=== PATIENT | female | born 1985 | race Caucasian/White ===

== ENCOUNTER 2017-07-28 16:04 | Emergency (ER) | payer BC ==
[2017-07-28 17:37] VITALS: BP 122/66
--- NOTE | 2017-07-28 17:44 | UC ---
Throat Pain/Nasal Shravan HPI - HPI Summary HPI Summary: 32 [address] sore throat, loss of voice and headache for 3 days. works at [employer]. 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 [ End ] - History of Current Complaint Chief Complaint: UCGeneralIllness Stated Complaint: ST Time Seen by Provider: 07/28/17 17:43 Hx Obtained From: Patient Onset/Duration: Gradual Onset Severity: Moderate - Allergies/Home Medications Allergies/Adverse Reactions: Allergies Allergy/AdvReac Type Severity Reaction Status Date / Time Doxycycline Allergy Hives Verified 07/28/17 17:37 Prednisone Allergy HEADACHES/VOMITTING/PROFUSE Verified 07/28/17 17:37 SWEATING Home Medications: Home Medications Albuterol HFA INHALER* [Ventolin HFA Inhaler*] 2 puff INH Q4H PRN 07/28/17 [ History Confirmed 07/28/17] Amitriptyline TAB* [Elavil TAB*] 25 mg PO BEDTIME 07/28/17 [History Confirmed ] Cetirizine* [ZyrTEC 10 MG TAB*] 10 mg PO DAILY 07/28/17 [History Confirmed 07/28] Gabapentin CAP(*) [Neurontin 300 CAP(*)] 300 mg PO BEDTIME 07/28/17 [History Confirmed 07/28/17] Hydroxychloroquine TAB* [Plaquenil TAB*] 200 mg PO DAILY 07/28/17 [History Confirmed 07/28/17] Omeprazole CAP* [Prilosec CAP* 20 MG] 20 mg PO DAILY 07/28/17 [History Confirmed 07/28/17] Sertraline* [Zoloft*] 25 mg PO DAILY 07/28/17 [History Confirmed 07/28/17] PMH/Surg Hx/FS Hx/Imm Hx Previously Healthy: Yes - Surgical History Surgical History: Yes Surgery Procedure, Year, and Place: COLPOSCOPY(SCOPE OF UTERINE/CERVIX); CONE BIOPSY; LEEP; WISDOM TEETH REMOVAL - Family History Known Family History: Negative: Seizure Disorder - Social History Occupation: Employed Full-time Alcohol Use: Rare Substance Use Type: None Smoking Status (MU): Never Smoked Tobacco Review of Systems Constitutional: Chills, Fatigue ENT: Sore Throat, Ear Ache, Nasal Discharge Is Patient Immunocompromised?: No All Other Systems Reviewed And Are Negative: Yes Physical Exam Triage Information Reviewed: Yes Appearance: Well-Appearing, No Pain Distress, Well-Nourished Vital Signs: Initial Vital Signs Temp 98.4 F 07/28/17 17:33 Pulse 78 07/28/17 17:33 Resp 14 07/28/17 17:33 BP 122/66 07/28/17 17:33 Pulse Ox 100 07/28/17 17:33 Vital Signs Reviewed: Yes Eye Exam: Normal ENT Exam: Normal ENT: Positive: Pharyngeal erythema, Nasal congestion Dental Exam: Normal Neck exam: Normal Neck: Positive: 1 Respiratory Exam: Normal Cardiovascular Exam: Normal Musculoskeletal Exam: Normal Neurological Exam: Normal Psychological Exam: Normal Skin Exam: Normal Throat Pain/Nasal Course/Dx - Course Course Of Treatment: neg strep - Differential Dx/Diagnosis Differential Diagnosis/HQI/PQRI: Laryngitis, Otitis Media, Pharyngitis, Tonsillitis, URI Provider Diagnoses: URI Discharge - Discharge Plan Condition: Good Disposition: HOME Patient Education Materials: Upper Respiratory Infection (ED) Forms: *Work Release Referrals: Juan Manuel MD [Primary Care Provider] - 4 Days
== END 2017-07-28 18:40 | disposition home or self-care (01) ==
LOC: UCCORT 16:04
DX: J06.9 Acute upper respiratory infection, unspecified (principal); Z88.1 Allergy status to other antibiotic agents; Z88.8 Allergy status to other drugs, medicaments and biological substances
CPT/HCPCS: 87651; 99211; G0463

== ENCOUNTER 2017-11-03 14:55 | Emergency (ER) | payer BC ==
[2017-11-03 17:15] VITALS: BP 116/66
--- NOTE | 2017-11-03 17:37 | UC ---
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 Did have a brief typical scotomo today. No photophobia, diplopia. Has nausea but no vomiting. No fever, no recent illness, no trauma. No ear symptoms, no tinnitus. Does have seasonal allergies which activate at this time of year. Takes daily cetirazine. - History Of Current Complaint Chief Complaint: UCDizziness Stated Complaint: DIZZINESS Time Seen by Provider: 11/03/17 17:35 Hx Obtained From: Patient Hx Last Menstrual Period: 10/31/27 Onset/Duration: Gradual Onset, Lasting Days - 7 Timing: Intermittent Episode Lasting - hours, all day today, other days had an hour here and there. Severity Initially: Moderate Severity Currently: Moderate Pain Intensity: 5 Character: Room Spinning, Lightheaded Aggravating Factor(s): Headache, Position Change Alleviating Factor(s): Rest Associated Signs And Symptoms: Positive: Nausea. Negative: Change In Medication - on elavil, gabapentin and sertraline, but no recent dose changes. Normal labs last month. - Risk Factors Cardiac Risk Factors: Negative CVA Risk Factor: Negative - Allergies/Home Medications Allergies/Adverse Reactions: Allergies Allergy/AdvReac Type Severity Reaction Status Date / Time doxycycline Allergy Rash Verified 11/03/17 17:11 prednisone Allergy Vomiting Verified 11/03/17 17:11 PMH/Surg Hx/FS Hx/Imm Hx Previously Healthy: No - lupus and ITP - Surgical History Surgical History: Yes Surgery Procedure, Year, and Place: COLPOSCOPY(SCOPE OF UTERINE/CERVIX); CONE BIOPSY; LEEP; WISDOM TEETH REMOVAL - Family History Known Family History: Positive: Other Negative: Seizure Disorder - Social History Occupation: Employed Full-time Lives: Alone Alcohol Use: Occasionally Substance Use Type: None Smoking Status (MU): Never Smoked Tobacco Review of Systems Constitutional: Fatigue Skin: Negative Eyes: Other - some scintillating lights today, typical scotoma for ehr ENT: Negative Respiratory: Negative Cardiovascular: Negative Gastrointestinal: Negative Genitourinary: Negative Motor: Negative Neurovascular: Negative Musculoskeletal: Negative Neurological: Headache Psychological: Negative Is Patient Immunocompromised?: No All Other Systems Reviewed And Are Negative: Yes Physical Exam Triage Information Reviewed: Yes Appearance: Well-Appearing, Obese, Other: - mildly off balance with position changes, but corrects easily Vital Signs: Initial Vital Signs Temp 99.4 F 11/03/17 17:12 Pulse 72 11/03/17 17:12 Resp 18 11/03/17 17:12 BP 116/66 11/03/17 17:12 Pulse Ox 100 11/03/17 17:12 Eyes: Positive: Conjunctiva Clear, Other: - MONI, EOM normal, no nystagmus with position change sitting to lying ENT: Positive: Pharynx normal, TM red - on the left Dental Exam: Normal Neck: Positive: Supple, Nontender, No Lymphadenopathy Respiratory: Positive: Lungs clear, Normal breath sounds Cardiovascular: Positive: RRR Abdomen Description: Positive: Nontender, No Organomegaly, Soft Neurological Exam: Other - CNII-XII normal. No pronator drift. Negative Romberg. Can heel to toe walk--slow but accurate. Neurological: Positive: Alert, Muscle Tone Normal Skin Exam: Normal Dizzy Course/Dx - Course Course Of Treatment: zofran for nausea. Labs drawn for evaluation and follow up with her PMD. Declined CT imaging tonight. - Differential Dx/Diagnosis Differential Diagnosis/HQI/PQRI: CVA, Meniere's Disease, Medication Reaction Provider Diagnoses: dizziness NYD. Has some symptoms consistent with BPPV, but inconsistent exam. Discharge - Sign-Out/Discharge Documenting (check all that apply): Discharge - Discharge Plan Condition: Stable Disposition: HOME Patient Education Materials: Dizziness (ED) Forms: *Work Release Referrals: Juan Manuel MD [Primary Care Provider] - Additional Instructions: The cause of your symptoms is not clear. It is possible that it is mild positional vertigo, and it could be compounded by an ocular migraine. Labs have been drawn to check your platelet count, creactive protein, and chemistries. Follow up with your team leader surgery or Dr. Manuel early next week. Return to the emergency room for evaluation if your symptoms are worsening. Take zofran and acetaminophen before bed tonight, with the anticipation that the symptoms might sebas with treatment of your headache. - Billing Disposition and Condition Condition: STABLE Disposition: HOME
[2017-11-03] MEDS ORDERED: Ondansetron ODT TAB* 4 MG PO ONE (18:04)
[2017-11-03 20:25] LABS: EGFR Non-African American 83.3 (>60)
[2017-11-03 20:29] LABS: ABS Basophils 0 10^3/ul (0-0.2); ABS Eosinophils 0.2 10^3/ul (0-0.6); ABS Lymphocytes 1.7 10^3/ul (1.0-4.8); ABS Monocytes 0.4 10^3/ul (0-0.8); ABS Neutrophils 3.6 10^3/ul (1.5-7.7); ABS Nucleated RBC 0 10^3/ul; Eosinophil % 3.1 % (0-6); Hematocrit 43 % (35-47); Hemoglobin 14.8 g/dl (12.0-16.0); Lymphocyte % 28.8 % (25-47); Mean Corpuscular HGB Conc 34 g/dl (31-36); Mean Corpuscular Hemoglobin 30 pg (27-31); Mean Corpuscular Volume 89 fL (80-97); Mean Platelet Volume 13.2 um3 (7.4-10.4); Nucleated Red Blood Cells % 0.1; Platelet Count 61 10^3/ul (150-450); Red Blood Count 4.85 10^6/ul (4.0-5.4); Red Cell Distribution Width 13 % (10.5-15)
--- NOTE | 2017-11-04 08:11 | UC ---
- Progress Note Progress Note: Pt with decreased platelet levels on lab. Pt with h/o ITP and lupus No previous for comparison in [facility] Please call pt - report platelet -recommend pt call and discuss with PCP or ginger farmer Pt to go to ED if sx persist, CARDOSO, confusion, or any other concerns bonniebunny 11/04/17 Discharge - Sign-Out/Discharge Documenting (check all that apply): Discharge - Discharge Plan Condition: Stable Disposition: HOME Patient Education Materials: Dizziness (ED) Forms: *Work Release Referrals: Juan Manuel MD [Primary Care Provider] - Additional Instructions: The cause of your symptoms is not clear. It is possible that it is mild positional vertigo, and it could be compounded by an ocular migraine. Labs have been drawn to check your platelet count, creactive protein, and chemistries. Follow up with your ginger farmer or Dr. Manuel early next week. Return to the emergency room for evaluation if your symptoms are worsening. Take zofran and acetaminophen before bed tonight, with the anticipation that the symptoms might sebas with treatment of your headache. - Billing Disposition and Condition Condition: STABLE Disposition: HOME
--- NOTE | 2017-11-05 07:37 | UC ---
- Progress Note Progress Note: Low platelet count. Watch for bleeding. Needs to follow up with PCP for recheck and possible referral to [facility]. Discharge - Sign-Out/Discharge Documenting (check all that apply): Discharge - Discharge Plan Condition: Stable Disposition: HOME Patient Education Materials: Dizziness (ED) Forms: *Work Release Referrals: Juan Manuel MD [Primary Care Provider] - Additional Instructions: The cause of your symptoms is not clear. It is possible that it is mild positional vertigo, and it could be compounded by an ocular migraine. Labs have been drawn to check your platelet count, creactive protein, and chemistries. Follow up with your rn admit or Dr. Manuel early next week. Return to the emergency room for evaluation if your symptoms are worsening. Take zofran and acetaminophen before bed tonight, with the anticipation that the symptoms might sebas with treatment of your headache. - Billing Disposition and Condition Condition: STABLE Disposition: HOME
== END 2017-11-03 18:38 | disposition home or self-care (01) ==
LOC: UCCORT 14:55
DX: R42 Dizziness and giddiness (principal); D69.6 Thrombocytopenia, unspecified; M32.9 Systemic lupus erythematosus, unspecified; Z88.8 Allergy status to other drugs, medicaments and biological substances; Z88.3 Allergy status to other anti-infective agents
CPT/HCPCS: 36415; 80053; 84443; 85025; 85060; 86141; 99212; A9270-GY; G0463

== ENCOUNTER 2018-02-25 17:21 | Emergency (ER) | payer BC ==
--- OUTSIDE RECORDS SUMMARY | 2018-02-25 17:52 | XMS REPORT ---
:1985 Author Organization [facility] Address [address] [place] [address] Care Team Providers Name Role Phone Katja Hargrove Unavailable Unavailable PROBLEMS Type Condition ICD9-CM Code [id number] Code Onset Condition SNOMED Code Dates Status Problem Mastodynia N64.4 Active 55568816 Problem Anal spasm K59.4 Active 65284280 Problem Pelvic and R10.2 Active 819550551 perineal pain Problem Leiomyoma of D25.9 Active 35684095 uterus, unspecified Problem Irregular N92.6 Active 46173909 menstruation, unspecified ALLERGIES No Information ENCOUNTERS Encounter Location Date Diagnosis [facility] [address] Feb, [place], [place] [id number] [facility] [address] Feb, [place], [place] [id number] [facility] [address] Jan, [place]BG[place] [id number] [facility] [address] Jan, Pelvic and perineal pain OBGYN [facility], R10.2 ; Mastodynia N64.4 [place] [id number] and Anal spasm K59.4 [facility] [address] Oct, OBGYN [place], [place] [id number] [facility] [address] Oct, [place]BG[place], [place] [id number] [facility] 103 Oct, Hematuria, unspecified OBGYN [facility], R31.9 [place] [id number] [facility] [address] Oct, [place]BG[place], [place] [id number] [facility] [address] Oct, [place] [id number] [facility] [address] Oct, Encounter for routine OBGYN [facility], checking of intrauterine [place] [id number] contraceptive device Z30.431 and Frequency of micturition R35.0 [facility] [address] Aug, Encounter for routine OBGYN [facility], checking of intrauterine [place] [id number] contraceptive device Z30.431 [facility] 103 Jul, Pelvic and perineal pain OBGYN [facility], R10.2 ; Anal spasm K59.4 ; [place] [id number] Leiomyoma of uterus, unspecified D25.9 and Encounter for other general counseling and advice on contraception Z30.09 [facility] 103 Jul, Leiomyoma of uterus, OBGYN [facility], unspecified D25.9 and [place] [id number] Encounter for routine checking of intrauterine contraceptive device Z30.431 [facility] 103 May, [place], [place] [id number] [facility] 103 May, Pelvic and perineal pain OBGYN [facility], R10.2 ; Anal spasm K59.4 ; [place] [id number] Leiomyoma of uterus, unspecified D25.9 and Encounter for other general counseling and advice on contraception Z30.09 [facility] 103 May, Leiomyoma of uterus, OBGYN [facility], unspecified D25.9 ; Pelvic [place] [id number] and perineal pain R10.2 and Encounter for routine checking of intrauterine contraceptive device Z30.431 [facility] 103 Apr, OBGYN [place], [place] [id number] [facility] [address] Apr, [place]BGYN [place], [place] [id number] [facility] 103 Apr, Hematuria, unspecified OBGYN [facility], R31.9 ; Other specified [place] [id number] noninflammatory disorders of vagina N89.8 ; Pelvic and perineal pain R10.2 and Anal spasm K59.4 [facility] Feb, [place]BGYN [place] [id number] [facility] [address] Feb, [place]BG[place] [id number] [facility] Feb, Other specified OBGYN [facility], noninflammatory disorders [place] [id number] of vagina N89.8 ; Frequency of micturition R35.0 and Anal spasm K59.4 [facility] Feb, Pelvic and perineal pain OBGYN [facility], R10.2 ; Irregular [place] [id number] menstruation, unspecified N92.6 and Encounter for routine checking of intrauterine contraceptive device Z30.431 [facility] [address] Feb, Encounter for [facility], gynecological examination [place] [id number] (general) (routine) without abnormal findings Z01.419 ; Encounter for screening for malignant neoplasm of cervix Z12.4 ; Encounter for other contraceptive management Z30.8 and PELVIC PAIN 625.9 [facility] Feb, Pelvic and perineal pain OBGYN [facility], R10.2 [place] [id number] [facility] 103 Feb, Pelvic and perineal pain OBGYN [facility], R10.2 [place] [id number] [facility] [address] Feb, [place] [id number] [facility] Jan, [place] [id number] [facility] 103 Jan, [facility] gynecological examination [place] [id number] (general) (routine) without abnormal findings Z01.419 and Frequency of micturition R35.0 [facility] 103 Dec, Irregular menstruation, OBGYN [facility], unspecified N92.6 and [place] [id number] Pelvic and perineal pain R10.2 [facility] 103 Dec, Other specified [facility], menstruation N92.5 and [place] [id number] Encounter for routine checking of intrauterine contraceptive device Z30.431 [facility] 103 November, [facility]ation, [facility], unspecified N92.6 [place] [id number] [facility] 103 Jan, ROUTINE GAS APPLIANCE ADJUSTER EXAMINATION [facility], V72.31 and STD Screen [place] [id number] V74.5 [facility] 103 November, Ovarian cyst NOS 620.2 [place] [id number] [facility] 103 November, PELVIC PAIN 625.9 and [facility]UD [facility], SURVEILLANCE V25.42 [place] [id number] [facility] Oct, [place] [id number] [facility] 103 Sep, [place] [id number] [facility] [address] Sep, [place] [id number] [facility] 103 Sep, Ovarian cyst NOS 620.2 and OBGYN [facility], PELVIC PAIN 625.9 [place] [id number] [facility] 103 Sep, Irregular bleeding NOS OBGYN [facility], 626.4 ; PELVIC PAIN 625.9 [place] [id number] ; IUD SURVEILLANCE V25.42 and Ovarian cyst NOS 620.2 [facility] 103 Sep, [place], [place] [id number] [facility] 103 Jan, VAGINAL DISCHARGE 623.5 [place]BGYN [place], [place] [id number] [facility] 103 Jan, [place]BG[place], [place] [id number] [facility] 103 Jan, ROUTINE GAS APPLIANCE ADJUSTER EXAMINATION OBGYN [facility], V72.31 [place] [id number] IMMUNIZATIONS No Known Immunizations SOCIAL HISTORY Never Assessed REASON FOR REFERRAL FUNCTIONAL STATUS PLAN OF CARE VITAL SIGNS MEDICATIONS Unknown Medications PROCEDURES No Known procedures RESULTS No Results REASON FOR VISIT Hematuria- vm sent 01/27/18 MEDICAL (GENERAL) HISTORY Type Description Date Medical History lupus Medical History neuropathy Medical History thrombocytopenia Medical History Raynaud's Syndrome Medical History asthma Surgical History colpo (CINII) 2006 Surgical History cone bx 2006 Surgical History leep 2006
[2018-02-25 18:01] VITALS: BP 116/67
--- NOTE | 2018-02-25 18:27 | UC ---
Respiratory Complaint HPI - HPI Summary HPI Summary: Patient is year 33-year-old female old , with past medical history significant for asthma for which she takes inhaler only as needed, and lupus, ITP(Last platelet count of 70, 2 months ago) and neuropathy who presents today with 2 days of nasal congestion and sore throat which has now progressed and her ear feels plugged and some tightness in the chest. She has not taken her inhaler. Reports mild fever at home,was 99.2F nights 2 days ago but no more fever since. Also has mild nonproductive cough. Now has noted tender lymph nodes. She denies any sick contact. No skin rash. No diaphoresis. Denies any abdominal pain , nausea or vomiting , diarrhea or constipation. She has not tried over the counter medication . - History of Current Complaint Chief Complaint: UCRespiratory Stated Complaint: HEAD AND CHEST CONGESTION Time Seen by Provider: 02/25/18 18:23 Hx Obtained From: Patient Hx Last Menstrual Period: 02/02/18 ?: No Onset/Duration: Sudden Onset Pain Intensity: 3 - Allergies/Home Medications Allergies/Adverse Reactions: Allergies Allergy/AdvReac Type Severity Reaction Status Date / Time doxycycline Allergy Rash Verified 11/03/17 17:11 prednisone Allergy Vomiting Verified 11/03/17 17:11 PMH/Surg Hx/FS Hx/Imm Hx - Additional Past Medical History Additional PMH: Lupus Previously Healthy: Yes Other Endocrine History: negative Cardiovascular History: Other - ITP Other Cardiovascular History: negative Respiratory History: Asthma Other Respiratory History: negative Other GI/ History: negative Neurological History: Other - neuropathy Other Neurological History: negative Other Psychological History: negative Other Cancer History: negative - Surgical History Surgical History: Yes Surgery Procedure, Year, and Place: COLPOSCOPY(SCOPE OF UTERINE/CERVIX); CONE BIOPSY; LEEP; WISDOM TEETH REMOVAL - Family History Known Family History: Positive: Other Negative: Seizure Disorder - Social History Alcohol Use: Occasionally Substance Use Type: None Smoking Status (MU): Never Smoked Tobacco Review of Systems Constitutional: Negative Skin: Negative Eyes: Negative ENT: Sore Throat, Ear Ache, Nasal Discharge, Sinus Congestion Respiratory: Negative Cardiovascular: Other - chest congestion Gastrointestinal: Negative Genitourinary: Negative Motor: Negative Neurovascular: Negative Musculoskeletal: Negative Neurological: Negative Psychological: Negative Is Patient Immunocompromised?: No All Other Systems Reviewed And Are Negative: Yes Physical Exam - Summary Physical Exam Summary: Physical Exam: Const: Appears well. No signs of apparent distress present. Alert and oriented x 3. Musculo: Walks with a normal gait. Head/Face: Atraumatic, normocephalic on inspection. Eyes: EOMI and PERRLA in both eyes. Conjunctivae clear. No discharge noted ENT: Hearing normal, mild pharyngeal erythema. TM mild red bilaterally. Tender anterior cervical lymphadenopathy on right Respiratory: Respirations are unlabored. Lungs clear to auscultation bilaterally, no wheezing , rhonchi or rales noted . CVS: Regular rate and Rhythm, S1S2 normal , no murmurs identified. Extremities: Peripheral circulation is grossly normal. Pulses 2+ Abdomen : Soft non tender , nondistended , Bowel sounds present . No guarding , rebound tenderness or rigidity noted. Skin: No lesions or rash located on the upper extremities or on the lower extremities. Neuro: Cranial nerves II to XII intact, motor and sensory intact. DTR Intact bilaterally. Mood is normal. Affect is normal. Triage Information Reviewed: Yes Vital Signs: Initial Vital Signs Temp 98.6 F 02/25/18 17:54 Pulse 80 02/25/18 17:54 Resp 14 02/25/18 17:54 BP 116/67 02/25/18 17:54 Pulse Ox 98 02/25/18 17:54 Vital Signs Reviewed: Yes UC Diagnostic Evaluation - Laboratory O2 Sat by Pulse Oximetry: 98 Respiratory Course/Dx - Course Course Of Treatment: During the visit today, we obtained rapid strep test that was negative. We discussed the findings and further plan. I will prescribe the medication to the pharmacy . Patient expressed understanding . - Differential Dx/Diagnosis Provider Diagnoses: Pharyngitis. Bronchitis. Atypical Pneumonia Discharge - Sign-Out/Discharge Documenting (check all that apply): Patient Departure - Discharge Plan Condition: Stable Disposition: HOME Prescriptions: Azithromyxin PB (NF) [Z-Pb (Zithromax) 250 mg tabs #6] 2 tab PO .TODAY, THEN 1 DAILY #6 tab Patient Education Materials: Pharyngitis (ED), Acute Bronchitis (ED) Referrals: Juan Manuel MD [Primary Care Provider] - 5 Days Additional Instructions: Please start taking the medication as prescribed to the pharmacy . Follow up with your primary care doctor in 3 to 5 days. Return to Urgent care / ER if symptoms get worse. - Billing Disposition and Condition Condition: STABLE Disposition: Home
== END 2018-02-25 19:10 | disposition home or self-care (01) ==
LOC: UCCORT 17:21
DX: J02.9 Acute pharyngitis, unspecified (principal); J40 Bronchitis, not specified as acute or chronic; J18.9 Pneumonia, unspecified organism; Z88.8 Allergy status to other drugs, medicaments and biological substances; Z88.1 Allergy status to other antibiotic agents
CPT/HCPCS: 87651; 99211; G0463

== ENCOUNTER 2018-02-26 12:32 | Emergency (ER) | payer BC ==
[2018-02-26 13:58] VITALS: BP 124/71
--- NOTE | 2018-02-26 14:50 | UC ---
Back Pain HPI - HPI Summary HPI Summary: 33 year old female presents with right, middle back pain that started suddenly yesterday after bending over. Describes as contant, ache that becomes more sharp and intense with any movement, twisting, or ambulation. Denies fever, chills, weakness, numbness, tingling in extremities, loss of bowel or bladder control, dysuria, frequency, urgency, or hematuria. She was seen in this facility yesterday and treated for URI. - History of Current Complaint Chief Complaint: UCBackPain Stated Complaint: BACK PAIN Time Seen by Provider: 02/26/18 14:35 Hx Obtained From: Patient Hx Last Menstrual Period: 01/29/18 ?: No Onset/Duration: Sudden Onset Timing: Constant Severity Initially: Moderate Severity Currently: Moderate Pain Intensity: 6 Back Pain: Is Discrete @ - right middle back Character: Sharp, Aching Aggravating Factor(s): Movement, Bending, Walking Alleviating Factor(s): Nothing Associated Signs And Symptoms: Negative: Fever, Weakness, Numbness, Tingling, Abdominal Pain, Flank Pain, Bladder Incontinence, Bowel Incontinence - Allergies/Home Medications Allergies/Adverse Reactions: Allergies Allergy/AdvReac Type Severity Reaction Status Date / Time doxycycline Allergy Rash Verified 02/26/18 13:50 prednisone Allergy Vomiting Verified 02/26/18 13:50 Home Medications: Home Medications Azithromyxin PB (NF) [Z-Pb (Zithromax) 250 mg tabs #6] 2 tab PO .TODAY, THEN 1 DAILY 02/26/18 [History Confirmed 02/26/18] PMH/Surg Hx/FS Hx/Imm Hx - Additional Past Medical History Additional PMH: ITP Psychological History: Depression - Surgical History Surgical History: Yes Surgery Procedure, Year, and Place: COLPOSCOPY(SCOPE OF UTERINE/CERVIX); CONE BIOPSY; LEEP; WISDOM TEETH REMOVAL - Family History Known Family History: Positive: Other - noncontributory Negative: Seizure Disorder - Social History Occupation: Employed Full-time Lives: With Family Alcohol Use: Rare Substance Use Type: None Smoking Status (MU): Never Smoked Tobacco Review of Systems Constitutional: Negative Skin: Negative Respiratory: Negative Cardiovascular: Negative Gastrointestinal: Negative Genitourinary: Negative Motor: Negative Neurovascular: Negative Musculoskeletal: Other: - back pain Neurological: Negative Is Patient Immunocompromised?: No All Other Systems Reviewed And Are Negative: Yes Physical Exam Triage Information Reviewed: Yes Appearance: Well-Appearing, No Pain Distress, Well-Nourished Vital Signs: Initial Vital Signs Temp 98.5 F 02/26/18 13:52 Pulse 75 02/26/18 13:52 Resp 14 02/26/18 13:52 BP 124/71 02/26/18 13:52 Pulse Ox 98 02/26/18 13:52 Neck: Positive: Supple, Nontender Respiratory: Positive: Lungs clear, Normal breath sounds, No respiratory distress Cardiovascular: Positive: RRR, No Murmur Abdomen Description: Positive: Nontender, Soft Musculoskeletal: Positive: Strength Intact, Other: - Tenderness with muscle spasm right thoracic back. No point tenderness over spine. Neurological: Positive: Muscle Tone Normal Skin Exam: Normal Back Pain Course/Dx - Course Course Of Treatment: Sudden onset right thoracic back pain after bending over. Muscle tenderness and spasm right thoracic back on exam. Patient unable to take NSAIDs d/t ITP. Will treat with acetaminophen and cyclobenzaprine PRN. Heating pad. Follow up with PCP in 7 days if no improvement. - Differential Dx/Diagnosis Provider Diagnoses: acute mid right sided back pain Discharge - Sign-Out/Discharge Documenting (check all that apply): Patient Departure - Discharge Plan Condition: Stable Disposition: HOME Prescriptions: Cyclobenzaprine TAB* [Flexeril 10 MG TAB*] 10 mg PO TID PRN #30 tab PRN Reason: Pain - Back Patient Education Materials: Back Pain (ED) Referrals: Juan Manuel MD [Primary Care Provider] - 7 Days (if no improvement) Additional Instructions: Take acetaminophen (Tylenol) according to directions as needed for pain. Take cyclobenzaprine (Flexeril) 1 tab every 8 hours as needed for severe back pain or spasm. This will cause drowsiness so do not take and drive or operate machinery. Try to stay as active as your pain will allow. Back pain can actually worsen if all you do is lie down as this can lead to muscle weakness and worsening of injury. Avoid heavy lifting or strenuous activity. Use heating pad or warm showers several times a day to help relax muscles and relieve pain. Follow up with your primary care provider in 7 days if no improvement. Per institutional requirements, I have reviewed the chart, however, I was not consulted specifically or made aware of this patient by the above midlevel provider. I did not personally evaluate, interact with , or disposition this patient. - Billing Disposition and Condition Condition: STABLE Disposition: Home
== END 2018-02-26 15:01 | disposition home or self-care (01) ==
LOC: UCCORT 12:32
DX: M54.6 Pain in thoracic spine (principal); Z88.1 Allergy status to other antibiotic agents; Z88.8 Allergy status to other drugs, medicaments and biological substances
CPT/HCPCS: 99212; G0463

== ENCOUNTER 2018-04-23 19:08 | Emergency (ER) | payer BC ==
--- OUTSIDE RECORDS SUMMARY | 2018-04-23 19:23 | XMS REPORT ---
:1985 External Reference #:[id number] Author Organization [facility] Address [address], [address] [place] [address] Phone [phone] Care Team Providers Name Role Phone Juan Manuel MD Care Team Information Cleaning Validation Consultant Unavailable Juan Manuel MD Primary Care Physician Unavailable Payers Type Date Identification Numbers Payment Provider Subscriber Commercial Policy Number: [id number] Rose Jefferson PayID: [id number] [address] [address] [place] [address] Problems Date Description Provider Status Onset: 10/03/2017 Hematuria syndrome Vickey Medeiros M.D. Active Onset: 10/03/2017 Increased frequency of urination Vickey Medeiros M.D. Active Family History Date Family Member(s) Problem(s) Comments Father enlarged prostate Mother Asthma Mother Anxiety Social History Type Date Description Comments Lives With Alone Occupation perioperative assistant for special needs. ETOH Use Currently consumes alcohol socially Recreational Drug Use Never Used Drugs Smoking Patient denies history of smoking Daily Caffeine Current Caffeine User occasionally Allergies, Adverse Reactions, Alerts Date Description Reaction Status Severity Comments 10/03/2017 Prednisone sweating and vomitting active Severe 10/03/2017 Doxycycline hives active Mild to Moderate 10/03/2017 Pepto-Bismol Nausea and Vomiting active Moderate to Severe Medications Medication Date Status Form Strength Qnty SIG Indications Ordering Provider Sertraline HCL Active Tablets 50mg 1 q day in Digiovann /0000 am Juan haas MD Hydroxychloroquin Active Tablets 200mg 2 xs q day Unknown e Sulfate / Omeprazole Active Capsules DR 20mg prn Digiovann /0000 Juan haas MD Gabapentin Active Capsules 300mg 2 at hs Unknown / Cetirizine HCL Active Tablets 10mg Take One Unknown Tablet By Mouth Every Day Mometasone Active Suspension 50mcg/Act prn Fensterma Furoate / Ronald estrada, RPA-C Multivitamin Active Tablets 1 by mouth Unknown every day Ventolin HFA Active Aerosol 108(90Bas take 2 e) puffs mcg/Act every 6 hours as needed for shortness of breath. Mirena (52 MG) Active IUD 20mcg/24H inserted Unknown R 07/22/2017, removal by 07/22/2022 lot [email or web address] Vitamin B-2 Active Tablets 100mg 2 by mouth Unknown every day Vesicare 01/16 Hx Tablets 5mg 7tabs 1 by mouth Waldemar, every day Sindy Hurd M.D. 02/17 Myrbetriq 10/03 Hx Tablets ER 50mg 30tab 1 by mouth R35.0 Waldemar, 24HR s every day Sindy Hurd M.D. 02/17 Vital Signs Date Vital Result Comment 03/27/2018 BP Systolic 112 mmHg BP Diastolic 73 mmHg Body Temperature 98.2 F Heart Rate 76 /min Respiratory Rate 16 /min Height 63 inches 5'3" Weight 192.12 lb BMI (Body Mass Index) 34.0 kg/m2 BSA (Body Surface Area) 1.90 m2 Reserve body weight in kilograms 52 O2 % BldC Oximetry 98 % Pain Level 0 03/08/2018 BP Systolic 116 mmHg BP Diastolic 70 mmHg Body Temperature 98.4 F Heart Rate 76 /min Respiratory Rate 16 /min O2 % BldC Oximetry 100 % Pain Level 0 03/01/2018 BP Systolic 110 mmHg BP Diastolic 73 mmHg Body Temperature 98.6 F Heart Rate 96 /min Respiratory Rate 16 /min Height 63 inches 5'3" Reserve body weight in kilograms 52 O2 % BldC Oximetry 98 % Pain Level 0 02/22/2018 BP Systolic 101 mmHg BP Diastolic 68 mmHg Body Temperature 98.3 F Heart Rate 87 /min Respiratory Rate 15 /min Height 63 inches 5'3" Reserve body weight in kilograms 52 O2 % BldC Oximetry 97 % Pain Level 4 Headache 02/17/2018 BP Systolic 113 mmHg BP Diastolic 69 mmHg Body Temperature 98.5 F Heart Rate 74 /min Respiratory Rate 15 /min Height 63 inches 5'3" Weight 184.25 lb BMI (Body Mass Index) 32.6 kg/m2 BSA (Body Surface Area) 1.87 m2 Reserve body weight in kilograms 52 O2 % BldC Oximetry 98 % Pain Level 0 02/08/2018 BP Systolic 110 mmHg BP Diastolic 76 mmHg Body Temperature 97.9 F Heart Rate 78 /min Respiratory Rate 16 /min O2 % BldC Oximetry 98 % Pain Level 0 02/03/2018 BP Systolic 126 mmHg BP Diastolic 68 mmHg Body Temperature 98.1 F Heart Rate 64 /min Respiratory Rate 16 /min O2 % BldC Oximetry 98 % Pain Level 0 01/16/2018 BP Systolic 120 mmHg BP Diastolic 79 mmHg Body Temperature 98.3 F Heart Rate 81 /min Respiratory Rate 16 /min Height 63 inches 5'3" Reserve body weight in kilograms 52 O2 % BldC Oximetry 96 % Pain Level 0 10/31/2017 BP Systolic 116 mmHg BP Diastolic 75 mmHg Body Temperature 98.5 F Heart Rate 89 /min Respiratory Rate 18 /min Height 63 inches 5'3" Weight 184.00 lb BMI (Body Mass Index) 32.6 kg/m2 BSA (Body Surface Area) 1.87 m2 Reserve body weight in kilograms 52 O2 % BldC Oximetry 93 % Pain Level 3 uncomfortable, low back pain 10/03/2017 BP Systolic 117 mmHg BP Diastolic 72 mmHg Body Temperature 98.1 F Heart Rate 83 /min Respiratory Rate 16 /min Height 63 inches 5'3" Weight 182.00 lb BMI (Body Mass Index) 32.2 kg/m2 BSA (Body Surface Area) 1.86 m2 Reserve body weight in kilograms 52 O2 % BldC Oximetry 97 % Pain Level 3 dull pain in lower back. Results Test Date Test Result H/L Range Note Ua RFX Micro & Culture II 01/16/2018 Urine Color YELLOW Yellow 1 Urine Clarity CLEAR Clear 1 Urine Glucose - Dipstick NEGATIVE mg/dL Negative 1 Urine Bilirubin - Dipstick NEGATIVE Negative 1 Urine Ketone NEGATIVE mg/dL Negative 1 Urine Specific [place] <=1.005 Low 1.010-1.030 1 Urine Blood SMALL Negative 1 Urine PH 5.5 Low 6.5-7.5 1 Urine Protein - Dipstick NEGATIVE mg/dL Negative 1 Urine Urobilinogen - Dipstick 0.2 E.U./dL 0.2-1.0 1 Urine Nitrite - Dipstick NEGATIVE Negative 1 Urine Leuk Esterase NEGATIVE Negative 1 Urine RBC 0-2 rbc/hpf 0-2 1 Urine WBC NONE SEEN wbc/hpf 0-7 1 Urine Epithelial Cells NONE SEEN /lpf None Seen 1 Source: URINE, CLEAN CAT <SEE NOTE> 1, 2 Ua RFX Micro & Culture II 10/03/2017 Urine Color YELLOW Yellow 1 Urine Clarity CLEAR Clear 1 Urine Glucose - Dipstick NEGATIVE mg/dL Negative 1 Urine Bilirubin - Dipstick NEGATIVE Negative 1 Urine Ketone NEGATIVE mg/dL Negative 1 Urine Specific [place] 1.010 1.010-1.030 1 Urine Blood SMALL Negative 1 Urine PH 5.5 Low 6.5-7.5 1 Urine Protein - Dipstick NEGATIVE mg/dL Negative 1 Urine Urobilinogen - Dipstick 0.2 E.U./dL 0.2-1.0 1 Urine Nitrite - Dipstick NEGATIVE Negative 1 Urine Leuk Esterase NEGATIVE Negative 1 Urine RBC 0-2 rbc/hpf 0-2 1 Urine WBC NONE SEEN wbc/hpf 0-7 1 Urine Epithelial Cells VERY FEW /lpf None Seen 1 Urine Bacteria NONE SEEN None Seen 1 Source: URINE, CLEAN CAT <SEE NOTE> 1, 3 1 R31.9 2 URINE, CLEAN CATCH 3 URINE, CLEAN CATCH Procedures Date CPT Code Description Status 03/08/2018 79493 Posterior Tibial Neurostimulation, Percutaneous Needle Completed Electrode 03/01/2018 59605 Posterior Tibial Neurostimulation, Percutaneous Needle Completed Electrode 02/22/2018 42098 Posterior Tibial Neurostimulation, Percutaneous Needle Completed Electrode 02/17/2018 94955 Posterior Tibial Neurostimulation, Percutaneous Needle Completed Electrode 02/08/2018 17545 Posterior Tibial Neurostimulation, Percutaneous Needle Completed Electrode 02/03/2018 37889 Posterior Tibial Neurostimulation, Percutaneous Needle Completed Electrode 01/16/2018 48722 Measurement Post Voiding Residual Urine By Completed Ultrasound,Non-Imaging 10/03/2017 64775 Measurement Post Voiding Residual Urine By Completed Ultrasound,Non-Imaging Encounters Type Date Location Provider CPT E/M Dx Office Visit 03/27/2018 3:45p Urology Vickey Medeiros M.D. 13696 R35.0 Office Visit 01/16/2018 1:30p Urology Vickey Medeiros M.D. 65776 R35.0 Office Visit 10/31/2017 3:45p Urology Vickey Medeiros M.D. 92731 R35.0 Office Visit 10/03/2017 2:15p Urology Vickey Medeiros M.D. 23595 R35.0 R31.9 Plan of Care Future Appointment(s):09/26/2018 3:30 pm - Vickey Medeiros M.D. at [id number] - Vickey Medeiros M.D.R35.0 Frequency of micturitionComments:We are discontinuing the PTNS. Discussed the modifications with the patient like limiting her fluids before bedtime, timed voiding during the daytime. Patient will follow-up with me in a few months to reevaluate.
[2018-04-23] MEDS ORDERED: Tetan/Diph/Pertus SYR(Tdap)* 0.5 ML SYR(BOOSTRIX) use SYR IM ONE (19:44)
[2018-04-23 19:49] VITALS: BP 121/58
--- NOTE | 2018-04-23 20:25 | UC ---
Lower Extremity/Ankle HPI - HPI Summary HPI Summary: patient stepped on a nail with bleeding, and pain , pain with associated swelling - History of Current Complaint Chief Complaint: UCGeneralIllness Stated Complaint: LEFT FOOT INJURY Time Seen by Provider: 04/23/18 19:28 Hx Last Menstrual Period: has mirena ?: No Onset/Duration: Sudden Onset Severity Initially: Moderate Severity Currently: Moderate Pain Intensity: 2 Aggravating Factor(s): Standing Able to Bear Weight: Yes - Risk Factors Gout Risk Factors: Negative DVT Risk Factors: Negative Septic Arthritis Risk Factor: Negative - Allergies/Home Medications Allergies/Adverse Reactions: Allergies Allergy/AdvReac Type Severity Reaction Status Date / Time doxycycline Allergy Rash Verified 04/23/18 19:49 prednisone Allergy Vomiting Verified 04/23/18 19:49 Home Medications: Home Medications Multivitamins/Minerals TAB* [Theragran/minerals TAB*] 1 tab PO DAILY 04/23/18 [ History Confirmed 04/23/18] Vitamin B2 1 tab BEDTIME 04/23/18 [History Confirmed 04/23/18] PMH/Surg Hx/FS Hx/Imm Hx Previously Healthy: Yes - Surgical History Surgical History: Yes Surgery Procedure, Year, and Place: COLPOSCOPY(SCOPE OF UTERINE/CERVIX); CONE BIOPSY; LEEP; WISDOM TEETH REMOVAL - Family History Known Family History: Positive: Other - noncontributory Negative: Seizure Disorder - Social History Alcohol Use: Occasionally Substance Use Type: None Smoking Status (MU): Never Smoked Tobacco - Immunization History Most Recent Tetanus Shot: 2008 Review of Systems Constitutional: Negative Skin: Negative Eyes: Negative ENT: Negative Respiratory: Negative Cardiovascular: Negative Gastrointestinal: Negative Genitourinary: Negative Motor: Negative Neurovascular: Negative Musculoskeletal: Negative Neurological: Negative Psychological: Negative All Other Systems Reviewed And Are Negative: Yes Physical Exam Triage Information Reviewed: Yes Appearance: Well-Appearing Vital Signs: Initial Vital Signs Temp 36.6 C 04/23/18 19:45 Pulse 68 04/23/18 19:45 Resp 16 04/23/18 19:45 BP 121/58 04/23/18 19:45 Pulse Ox 98 04/23/18 19:45 Vital Signs Reviewed: Yes Eyes: Positive: Conjunctiva Clear ENT Exam: Normal Dental Exam: Normal Neck exam: Normal Neck: Positive: Supple Respiratory Exam: Normal Skin Exam: Other - puncture wound left foot , at the heel Lower Extremity Course/Dx - Differential Dx/Diagnosis Provider Diagnoses: puncture wound left heel Discharge - Sign-Out/Discharge Documenting (check all that apply): Patient Departure All imaging exams completed and their final reports reviewed: No Studies - Discharge Plan Condition: Good Disposition: HOME Patient Education Materials: Puncture Wound (ED) Referrals: Juan Manuel MD [Primary Care Provider] - - Billing Disposition and Condition Condition: GOOD Disposition: Home
== END 2018-04-23 20:35 | disposition home or self-care (01) ==
LOC: UCCORT 19:08
DX: S91.332A Puncture wound without foreign body, left foot, initial encounter (principal); W45.0XXA Nail entering through skin, initial encounter; Y92.9 Unspecified place or not applicable; Z88.1 Allergy status to other antibiotic agents; Z88.8 Allergy status to other drugs, medicaments and biological substances
CPT/HCPCS: 90471; 90715; 99212; G0463

== ENCOUNTER 2018-09-28 14:17 | Emergency (ER) | payer BC ==
[2018-09-28 14:38] VITALS: BP 103/61
--- OUTSIDE RECORDS SUMMARY | 2018-09-28 14:55 | XMS REPORT | Continuity of Care Document ---
:1985 External Reference #:[id number] Author Name Vickey Medeiros M.D. Address [address] [place] [address] Care Team Providers Name Role Phone Juan Manuel MD Care Team Information [address] Magistrate Unavailable Juan Manuel MD Primary Care Physician Unavailable Payers Date Identification Numbers Payment Provider Subscriber Policy Number: [id number] Rose Jefferson PayID: [id number] [address] [address] [place] [address] Advance Directives Description No Information Available Problems Date Description Provider Status Onset: 10/03/2017 Hematuria syndrome Vickey Medeiros M.D. Active Onset: 10/03/2017 Increased frequency of urination Vickey Medeiros M.D. Active Family History Date Family Member(s) Observation Comments Father enlarged prostate Mother Asthma Mother Anxiety Social History Type Date Description Comments Sex Unknown Lives With Alone Occupation budget assistant for special needs. ETOH Use Currently consumes alcohol socially Recreational Drug Use Never Used Drugs Tobacco Use Start: Unknown Patient denies history of smoking Smoking Status Reviewed: 09/20/18 Patient denies history of smoking Allergies, Adverse Reactions, Alerts Date Description Reaction Status Severity Comments 10/03/2017 Prednisone sweating and vomitting Active Severe 10/03/2017 Doxycycline hives Active Moderate 10/03/2017 Pepto-Bismol Nausea and Vomiting Active Severe Medications Medication Date Status Form Strength Qnty SIG Indications Ordering Provider Sertraline HCL Active Tablets 50mg 1 q day in Digiovann /0000 am Juan haas MD Hydroxychloroquin Active Tablets 200mg 2 xs q day Unknown e Sulfate / Omeprazole Active Capsules DR 20mg prn Digiovann /0000 Juan haas MD Gabapentin 00/00 Active Capsules 300mg 2 at hs Unknown Cetirizine HCL Active Tablets 10mg Take One Tablet By Mouth Every Day Mometasone Active Suspension 50mcg/Act prn Fensterma Furoate Ronald estrada, RPA-C Multivitamin Active Tablets 1 by mouth Unknown every day Ventolin HFA Active Aerosol 108(90Bas take 2 e) puffs mcg/Act every 6 hours as needed for shortness of breath. Mirena (52 MG) Active IUD 20mcg/24H inserted Unknown R 07/22/2017, removal by 07/22/2022 lot [id number] Vitamin B-2 Active Tablets 100mg 2 by mouth Unknown every day Vesicare 01/16 Hx Tablets 5mg 7tabs 1 by mouth Waldemar, every day Sindy Hurd M.D. 02/17 Myrbetriq 10/03 Hx Tablets ER 50mg 30tab 1 by mouth R35.0 Waldemar, 24HR s every day Sindy Hurd M.D. 02/17 Immunizations Description No Information Available Vital Signs Date Vital Result Comment 09/26/2018 3:53pm BP Systolic 117 mmHg BP Diastolic 59 mmHg Body Temperature 98.8 F Heart Rate 75 /min Respiratory Rate 16 /min Height 63 inches 5'3" Weight 190.00 lb reported BMI (Body Mass Index) 33.7 kg/m2 BSA (Body Surface Area) 1.89 m2 [place] body weight in kilograms 52 kg O2 % BldC Oximetry 98 % Ra Pain Level 0 03/27/2018 3:43pm BP Systolic 112 mmHg BP Diastolic 73 mmHg Body Temperature 98.2 F Heart Rate 76 /min Respiratory Rate 16 /min Height 63 inches 5'3" Weight 192.12 lb BMI (Body Mass Index) 34.0 kg/m2 BSA (Body Surface Area) 1.90 m2 [place] body weight in kilograms 52 kg O2 % BldC Oximetry 98 % Pain Level 0 03/08/2018 1:47pm BP Systolic 116 mmHg BP Diastolic 70 mmHg Body Temperature 98.4 F Heart Rate 76 /min Respiratory Rate 16 /min O2 % BldC Oximetry 100 % Pain Level 0 03/01/2018 11:33am BP Systolic 110 mmHg BP Diastolic 73 mmHg Body Temperature 98.6 F Heart Rate 96 /min Respiratory Rate 16 /min Height 63 inches 5'3" [place] body weight in kilograms 52 kg O2 % BldC Oximetry 98 % Pain Level 0 02/22/2018 1:37pm BP Systolic 101 mmHg BP Diastolic 68 mmHg Body Temperature 98.3 F Heart Rate 87 /min Respiratory Rate 15 /min Height 63 inches 5'3" [place] body weight in kilograms 52 kg O2 % BldC Oximetry 97 % Pain Level 4 Headache 02/17/2018 9:44am BP Systolic 113 mmHg BP Diastolic 69 mmHg Body Temperature 98.5 F Heart Rate 74 /min Respiratory Rate 15 /min Height 63 inches 5'3" Weight 184.25 lb BMI (Body Mass Index) 32.6 kg/m2 BSA (Body Surface Area) 1.87 m2 [place] body weight in kilograms 52 kg O2 % BldC Oximetry 98 % Pain Level 0 02/08/2018 12:21pm BP Systolic 110 mmHg BP Diastolic 76 mmHg Body Temperature 97.9 F Heart Rate 78 /min Respiratory Rate 16 /min O2 % BldC Oximetry 98 % Pain Level 0 02/03/2018 11:44am BP Systolic 126 mmHg BP Diastolic 68 mmHg Body Temperature 98.1 F Heart Rate 64 /min Respiratory Rate 16 /min O2 % BldC Oximetry 98 % Pain Level 0 01/16/2018 1:33pm BP Systolic 120 mmHg BP Diastolic 79 mmHg Body Temperature 98.3 F Heart Rate 81 /min Respiratory Rate 16 /min Height 63 inches 5'3" [place] body weight in kilograms 52 kg O2 % BldC Oximetry 96 % Pain Level 0 10/31/2017 3:56pm BP Systolic 116 mmHg BP Diastolic 75 mmHg Body Temperature 98.5 F Heart Rate 89 /min Respiratory Rate 18 /min Height 63 inches 5'3" Weight 184.00 lb BMI (Body Mass Index) 32.6 kg/m2 BSA (Body Surface Area) 1.87 m2 [place] body weight in kilograms 52 kg O2 % BldC Oximetry 93 % Pain Level 3 uncomfortable, low back pain 10/03/2017 2:10pm BP Systolic 117 mmHg BP Diastolic 72 mmHg Body Temperature 98.1 F Heart Rate 83 /min Respiratory Rate 16 /min Height 63 inches 5'3" Weight 182.00 lb BMI (Body Mass Index) 32.2 kg/m2 BSA (Body Surface Area) 1.86 m2 [place] body weight in kilograms 52 kg O2 % BldC Oximetry 97 % Pain Level 3 dull pain in lower back. Results Test Date Facility Test Result H/L Range Note Urine Dipstick 09/26/2018 [facility] Ua Color yellow Yellow Ua Clarity clear Clear Ua Leuko negative Negative Ua Nitrite negative Negative Ua Urobilinogen 0.2 0.2 - 1.0 E.U./dL Ua Protein negative Negative Ua PH 5.5 Low 6.5-7.5 Ua Blood 25 High Negative Ua Specific [place] 1.030 1.010-1.030 Ua Ketones negative Negative Ua Bilirubin negative Negative Ua Glucose negative Negative Ua RFX Micro & Culture 01/16/2018 [facility] Urine Color YELLOW Yellow [address] [place] [address] [phone] Urine Clarity CLEAR Clear Urine Glucose - Dipstick NEGATIVE mg/dL Negative Urine Bilirubin - Dipstick NEGATIVE Negative Urine Ketone NEGATIVE mg/dL Negative Urine Specific [place] <=1.005 Low 1.010-1.030 Urine Blood SMALL Abnormal Negative Urine PH 5.5 Low 6.5-7.5 Urine Protein - Dipstick NEGATIVE mg/dL Negative Urine Urobilinogen - Dipstick 0.2 E.U./dL N 0.2-1.0 Urine Nitrite - Dipstick NEGATIVE Negative Urine Leuk Esterase NEGATIVE Negative Urine RBC 0-2 rbc/hpf 0-2 Urine WBC NONE SEEN wbc/hpf 0-7 Urine Epithelial Cells NONE SEEN /lpf None Seen Source: URINE, CLEAN CAT <SEE NOTE> 2 Ua RFX Micro & Culture 10/03/2017 [facility] Urine Color YELLOW Yellow [address] [place] [address] [phone] Urine Clarity CLEAR Clear Urine Glucose - Dipstick NEGATIVE mg/dL Negative Urine Bilirubin - Dipstick NEGATIVE Negative Urine Ketone NEGATIVE mg/dL Negative Urine Specific [place] 1.010 N 1.010-1.030 Urine Blood SMALL Abnormal Negative Urine PH 5.5 Low 6.5-7.5 Urine Protein - Dipstick NEGATIVE mg/dL Negative Urine Urobilinogen - Dipstick 0.2 E.U./dL N 0.2-1.0 Urine Nitrite - Dipstick NEGATIVE Negative Urine Leuk Esterase NEGATIVE Negative Urine RBC 0-2 rbc/hpf 0-2 Urine WBC NONE SEEN wbc/hpf 0-7 Urine Epithelial Cells VERY FEW /lpf None Seen Urine Bacteria NONE SEEN None Seen Source: URINE, CLEAN CAT <SEE NOTE> 3 1 R31.9 2 URINE, CLEAN CATCH 3 URINE, CLEAN CATCH Procedures Date Code Description Status 03/08/2018 99135 Posterior Tibial Neurostimulation, Percutaneous Needle Completed Electrode 03/01/2018 45882 Posterior Tibial Neurostimulation, Percutaneous Needle Completed Electrode 02/22/2018 28391 Posterior Tibial Neurostimulation, Percutaneous Needle Completed Electrode 02/17/2018 20008 Posterior Tibial Neurostimulation, Percutaneous Needle Completed Electrode 02/08/2018 92915 Posterior Tibial Neurostimulation, Percutaneous Needle Completed Electrode 02/03/2018 68992 Posterior Tibial Neurostimulation, Percutaneous Needle Completed Electrode 01/16/2018 66790 Measurement Post Voiding Residual Urine By Completed Ultrasound,Non-Imaging 10/03/2017 79004 Measurement Post Voiding Residual Urine By Completed Ultrasound,Non-Imaging Encounters Type Date Location Provider Dx Diagnosis Office Visit 09/26/2018 Urology Vickey Medeiros R35.0 Frequency of 3:30p M.D. micturition Office Visit 03/27/2018 Urology Vickey Medeiros R35.0 Frequency of 3:45p M.D. micturition Office Visit 01/16/2018 Urology Vickey Medeiros R35.0 Frequency of 1:30p M.D. micturition Office Visit 10/31/2017 Urology Vickey Medeiros R35.0 Frequency of 3:45p M.D. micturition Office Visit 10/03/2017 Urology Vickey Medeiros R35.0 Frequency of 2:15p M.D. micturition R31.9 Hematuria, unspecified Plan of Treatment 09/26/2018 - Vickey Medeiros M.D.R35.0 Frequency of micturitionComments: Symptoms are improved during the daytime with conservative measures, at nighttime she does have to go to bathroom shortly after she goes to bed. We did discuss the remote indications and limiting fluids after dinnertime. Patient to follow-up with me as needed.
--- OUTSIDE RECORDS SUMMARY | 2018-09-28 14:55 | XMS REPORT | Continuity of Care Document ---
:1985 External Reference #:[id number] Author Name Singh Ventura MD Address [address] [place] [address] Care Team Providers Name Role Phone Juan Trimble MD Care Team Information Continuous Process Machine Operator Unavailable Juan Trimble MD Primary Care Physician Unavailable Payers Date Identification Numbers Payment Provider Subscriber Effective: 2015 Policy Number: [id number] [employer] Dominique Jefferson PayID: [id number] [address] [address] [place] [address] Expires: 2015 Policy Number: [id number] [facility] Dominique Jefferson PayID: [id number] [address] [place] [address] Advance Directives Description No Information Available Problems Date Description Provider Status Onset: 10/14/2016 Mild intermittent asthma Rekha Rutledge Fenstermacher, Active RPA-C Onset: 10/14/2016 Allergic rhinitis due to pollen Rekha Jacobsr, Active RPA-C Onset: 10/14/2016 Allergic rhinitis Rekha Rutledge Fenstermacher, Active RPA-C Onset: 11/24/2017 Asthma without status asthmaticus TIFFANIE Diaz Active Onset: 05/25/2018 Exacerbation of moderate TIFFANIE Diaz Active persistent asthma Onset: 09/05/2018 Allergy to other foods Rekha Fountainermmarlar, Active RPA-C Onset: 09/05/2018 Mild persistent asthma Rekha Rutledge Fenstermacher, Active RPA-C Onset: 06/29/2018 Uncomplicated moderate persistent TIFFANIE Diaz Active asthma Family History Description No Information Available Social History Type Date Description Comments Sex Unknown Smoke-Free Home is smoke-free Tobacco Use Start: Unknown Patient has never smoked Smoking Status Reviewed: 09/14/18 Patient has never smoked Allergies, Adverse Reactions, Alerts Date Description Reaction Status Severity Comments 04/03/2013 Doxycycline Calcium Active 10/14/2016 Prednisone Active Medications Medication Date Status Form Strength Qnty SIG Indications Ordering Provider Asmanex HFA 09/05 Active Aerosol 100mcg/Ac 13gm inhale J45.30 t two puffs Raad Ventura MD by mouth twice a day. rinse mouth after use. Sudafed Nasal 06/29 Active Tablets 30mg 60tab one J30.1 Decongestant /2017 s tablet Raad Ventura MD Maximum Strength every 24 hours as needed Mometasone 01/20 Active Suspension 50mcg/Act 51gm 2 Sprays Fur Each Raad Ventura MD Nostril Once Daily Proair 11/19 Active Aerosol 108(90Bas 3unit inhale 2 Respicl e) s puffs q4 Raad Ventura MD mcg/Act hours as needed. Cetirizine HCL 08/18 Active Tablets 10mg 30tab Take One s Tablet By Raad Ventura MD Mouth Every Day Hydroxychloroqui Active Tablets 200mg take 2 Unknown ne Sulfate /0000 tablets (400 mg) by oral route 2 times per day Mirena Active IUD 20mcg/24H Unknown /0000 R Gabapentin Active Solution 250mg/5ML take 6 Unknown /0000 millilite rs (300 mg) by oral route 3 times per day Sertraline HCL Active Tablets 25mg 1 tab PO Unknown /0000 daily Qvar Redihaler 05/25 Hx Aerosol 80mcg/Act 10.60 inhale 4 J30.89 0gm puffs by Raad Ventura MD - inhalatio 06/29 n route times per day Nasonex 10/14 Hx Suspension 50mcg/Act 17uni [place] 2 J30.1 ts sprays in Raad Ventura MD - each 05/25 nostril /2017 by intranasa l route once daily. Fexofenadine HCL 10/14 Hx Tablets 180mg 30tab one J45.20 s tablet Raad Ventura MD - every 24 11/08 hours. /2017 Ventolin HFA 03/18 Hx Aerosol 108(90Bas 3unit Inhale 2 e) s puffs by Raad Ventura MD - mcg/Act inhalatio 09/05 n route /2018 every 4 hours as needed Fluticasone 03/07 Hx Suspension 50mcg/Act 1unit spray 2 s sprays Raad Ventura MD - (100 mcg) 10/14 in nostril by intranasa l route once daily as needed Flonase Allergy 03/07 Hx Suspension 50mcg/Act spray 2 Unknown sprays - (100 mcg) 10/14 in nostril by intranasa l route once daily Ventolin HFA 03/07 Hx Aerosol 108(90Bas inhale 2 e) puffs by - mcg/Act inhalatio 10/14 n route every 4 hours as needed Qvar 03/07 Hx Aerosol 80mcg/Act inhale 2 puffs by - inhalatio 10/14 n route times per day Azithromycin 00 Hx Tablets [facility]mg [facility], [facility] Medications Administered in Office Medication Date Status Form Strength Qnty SIG Indications Ordering Provider Allergy 09/05/ Administered Injection Christopher Injection 2 2018 Raad Ventura MD Or More Allergy 07/20/ Administered Injection Christopher Injection 2 2018 Raad Ventura MD Or More Allergy 06/29/ Administered Injection Christopher Injection 2 2017 Raad Ventura MD Or More Allergy 05/25/ Administered Injection Christopher Injection 2 2017 Raad Ventura MD Or More Allergy 05/04/ Administered Injection Christopher Injection 2 2017 Raad Ventura MD Or More Allergy 04/20/ Administered Injection Christopher Injection 2 2017 Raad Ventura MD Or More Allergy 04/06/ Administered Injection Christopher Injection 2 2017 Raad Ventura MD Or More Allergy 03/23/ Administered Injection Christopher Injection 2 2017 Raad Ventura MD Or More Allergy 03/09/ Administered Injection Christopher Injection 2 2017 Raad Ventura MD Or More Allergy 02/23/ Administered Injection Christopher Injection 2 2017 Raad Ventura MD Or More Allergy 02/09/ Administered Injection Christopher Injection 2 2017 Raad Ventura MD Or More Allergy 01/26/ Administered Injection Christopher Injection 2 2017 Raad Ventura MD Or More Allergy 01/12/ Administered Injection Christopher Injection 2 2017 Raad Ventura MD Or More Allergy 12/29/ Administered Injection Christopher Injection 2 2017 Raad Ventura MD Or More Allergy 12/15/ Administered Injection Christopher Injection 2 2017 Raad Ventura MD Or More Allergy 11/24/ Administered Injection Christopher Injection 2 2017 Raad Ventura MD Or More Allergy 11/10/ Administered Injection Christopher Injection 2 2017 Raad Ventura MD Or More Allergy 10/20/ Administered Injection Christopher Injection 2 2017 Raad Ventura MD Or More Allergy 10/06/ Administered Injection Christopher Injection 2 2017 Raad Ventura MD Or More Allergy 09/06/ Administered Injection Christopher Injection 2 2017 Raad Ventura MD Or More Allergy 08/04/ Administered Injection Christopher Injection 2 2017 Raad Ventura MD Or More Allergy 07/05/ Administered Injection Christopher Injection 2 2016 Raad Ventura MD Or More Allergy 06/07/ Administered Injection Christopher Injection 2 2016 Raad Ventura MD Or More Allergy 05/12/ Administered Injection Christopher Injection 2 2016 Raad Ventura MD Or More Allergy 04/28/ Administered Injection Christopher Injection 2 2016 Raad Ventura MD Or More Allergy 04/14/ Administered Injection Christopher Injection 2 2016 Raad Ventura MD Or More Allergy 03/31/ Administered Injection Christopher Injection 2 2016 Raad Ventura MD Or More Allergy 03/17/ Administered Injection Christopher Injection 2 2016 Raad Ventura MD Or More Allergy 03/03/ Administered Injection Christopher Injection 2 2016 Raad Ventura MD Or More Allergy 02/17/ Administered Injection Christopher Injection 2 2016 Raad Ventura MD Or More Allergy 02/01/ Administered Injection Christopher Injection 2 2016 Raad Ventura MD Or More Allergy 01/20/ Administered Injection Christopher Injection 2 2016 Raad Ventura MD Or More Allergy 01/06/ Administered Injection Christopher Injection 2 2016 Raad Ventura MD Or More Allergy // Administered Injection Christopher Injection 2 2016 Raad Ventura MD Or More Allergy 12/09/ Administered Injection Christopher Injection 2 2016 Raad Ventura MD Or More Allergy 11/25/ Administered Injection Christopher Injection 2 2016 Raad Ventura MD Or More Allergy 11/11/ Administered Injection Christopher Injection 2 2016 Raad Ventura MD Or More Allergy 10/28/ Administered Injection Christopher Injection 2 2016 Raad Ventura MD Or More Allergy 10/14/ Administered Injection Christopher Injection 2 2016 Raad Ventura MD Or More Allergy 10/07/ Administered Injection Christopher Injection 2 2016 Raad Ventura MD Or More Allergy 08/26/ Administered Injection Christopher Injection 2 2016 Raad Ventura MD Or More Allergy 07/29/ Administered Injection Christopher Injection 2 2016 Raad Ventura MD Or More Allergy 06/17/ Administered Injection Christopher Injection 2 2015 Raad Ventura MD Or More Allergy 05/13/ Administered Injection Christopher Injection 2 2015 Raad Ventura MD Or More Allergy 04/29/ Administered Injection Christopher Injection 2 2015 Raad Ventura MD Or More Allergy 04/15/ Administered Injection Christopher Injection 2 2015 Raad Ventura MD Or More Allergy 04/01/ Administered Injection Christopher Injection 2 2015 Raad Ventura MD Or More Allergy 03/18/ Administered Injection Christopher Injection 2 2015 Raad Ventura MD Or More Allergy 03/09/ Administered Injection Christopher Injection 2 2015 Raad Ventura MD Or More Allergy 02/18/ Administered Injection Christopher Injection 2 2015 Raad Ventura MD Or More Allergy 02/04/ Administered Injection Christopher Injection 2 2015 Raad Ventura MD Or More Allergy 01/21/ Administered Injection Christopher Injection 2 2015 Raad Ventura MD Or More Allergy 01/07/ Administered Injection Christopher Injection 2 2015 Raad Ventura MD Or More Allergy 12/24/ Administered Injection Christopher Injection 2 2015 Raad Ventura MD Or More Allergy 11/12/ Administered Injection Christopher Injection 2 2015 Raad Ventura MD Or More Allergy 10/29/ Administered Injection Christopher Injection 2 2015 Raad Ventura MD Or More Allergy 10/15/ Administered Injection Christopher Injection 2 2015 Raad Ventura MD Or More Allergy 10/01/ Administered Injection Christopher Injection 2 2015 Raad Ventura MD Or More Allergy 09/17/ Administered Injection Christopher Injection 2 2015 Raad Ventura MD Or More Allergy 09/04/ Administered Injection Christopher Injection 2 2015 Raad Ventura MD Or More Allergy 08/28/ Administered Injection Christopher Injection 2 2015 Raad Ventura MD Or More Allergy 08/14/ Administered Injection Christopher Injection 2 2015 Raad Ventura MD Or More Allergy 07/31/ Administered Injection Christopher Injection 2 2015 Raad Ventura MD Or More Allergy 07/03/ Administered Injection Christopher Injection 2 2014 Raad Ventura MD Or More Allergy 06/17/ Administered Injection Christopher Injection 2 2014 Raad Ventura MD Or More Allergy 06/05/ Administered Injection Christopher Injection 2 2014 Raad Ventura MD Or More Allergy 05/22/ Administered Injection Christopher Injection 2 2014 Raad Ventura MD Or More Immunizations Description No Information Available Vital Signs Date Vital Result Comment 09/14/2018 3:32pm BP Systolic 104 mmHg BP Diastolic 68 mmHg Height 63 inches 5'3" Weight 190.00 lb BMI (Body Mass Index) 33.7 kg/m2 Heart Rate 76 /min Respiratory Rate 18 /min Body Temperature 97.9 F O2 % BldC Oximetry 98 % 09/05/2018 9:50am BP Systolic 108 mmHg BP Diastolic 71 mmHg Height 63 inches 5'3" Weight 190.00 lb BMI (Body Mass Index) 33.7 kg/m2 Heart Rate 89 /min Respiratory Rate 16 /min Body Temperature 97.3 F O2 % BldC Oximetry 98 % 06/29/2018 3:32pm BP Systolic 112 mmHg BP Diastolic 80 mmHg Height 63 inches 5'3" Weight 180.00 lb BMI (Body Mass Index) 31.9 kg/m2 Heart Rate 80 /min Respiratory Rate 18 /min O2 % BldC Oximetry 99 % 05/25/2018 3:44pm BP Systolic 98 mmHg BP Diastolic 60 mmHg Height 63 inches 5'3" Weight 180.00 lb BMI (Body Mass Index) 31.9 kg/m2 Heart Rate 76 /min Body Temperature 98.5 F O2 % BldC Oximetry 95 % 11/24/2017 3:43pm Height 63 inches 5'3" Weight 180.00 lb BMI (Body Mass Index) 31.9 kg/m2 Heart Rate 75 /min Respiratory Rate 18 /min Body Temperature 97.2 F O2 % BldC Oximetry 97 % 10/14/2016 3:51pm BP Systolic 111 mmHg BP Diastolic 73 mmHg Height 63 inches 5'3" Weight 178.00 lb BMI (Body Mass Index) 31.5 kg/m2 Heart Rate 73 /min Respiratory Rate 16 /min Body Temperature 98.9 F O2 % BldC Oximetry 99 % 03/07/2014 2:08pm BP Systolic 119 mmHg BP Diastolic 74 mmHg Height 63 inches Weight 160.00 lb Heart Rate 71 /min 04/17/2013 11:50am BP Systolic 97 mmHg BP Diastolic 60 mmHg Heart Rate 73 /min 04/03/2013 10:36am BP Systolic 118 mmHg BP Diastolic 64 mmHg Height 63 inches Weight 160.00 lb Heart Rate 82 /min Results Test Date Facility Test Result H/L Range Note Order 09/14/2018 [facility] Skin Test Food <pending > Procedures Date Code Description Status 09/14/2018 81938 Allergy Tests Percutaneous W/ Allergenic Extracts Completed 09/14/2018 19832 Allergy Tests Percutaneous W/ Allergenic Extracts Completed 09/05/2018 60815 Allergy Injection 2 Or More Completed 07/31/2018 88386 Allergy Antigens Single Or Multiple Completed 07/20/2018 52816 Allergy Injection 2 Or More Completed 06/29/2018 18618 Allergy Injection 2 Or More Completed 05/25/2018 32071 Bronchodilation Responsiveness Spirometry Pre/Post Completed Bronchodil Adm 05/25/2018 47464 Bronchodilation Responsiveness Spirometry Pre/Post Completed Bronchodil Adm 05/25/2018 72459 Nitric Oxide Gas Determination Completed 05/25/2018 28937 Nitric Oxide Gas Determination Completed 05/25/2018 88921 Allergy Injection 2 Or More Completed 05/04/2018 22011 Allergy Injection 2 Or More Completed 04/20/2018 55816 Allergy Injection 2 Or More Completed 04/06/2018 43315 Allergy Injection 2 Or More Completed 03/23/2018 76137 Allergy Injection 2 Or More Completed 03/09/2018 74190 Allergy Injection 2 Or More Completed 02/23/2018 24291 Allergy Injection 2 Or More Completed 02/09/2018 15600 Allergy Injection 2 Or More Completed 01/26/2018 44806 Allergy Antigens Single Or Multiple Completed 01/26/2018 57420 Allergy Injection 2 Or More Completed 01/12/2018 41047 Allergy Injection 2 Or More Completed 12/29/2017 85268 Allergy Injection 2 Or More Completed 12/15/2017 55635 Allergy Injection 2 Or More Completed 11/24/2017 56839 Allergy Injection 2 Or More Completed 11/24/2017 81758 Nitric Oxide Gas Determination Completed 11/24/2017 59948 Nitric Oxide Gas Determination Completed 11/24/2017 57470 Bronchodilation Responsiveness Spirometry Pre/Post Completed Bronchodil Adm 11/24/2017 29542 Bronchodilation Responsiveness Spirometry Pre/Post Completed Bronchodil Adm 11/10/2017 44810 Allergy Injection 2 Or More Completed 10/20/2017 82154 Allergy Injection 2 Or More Completed 10/06/2017 74070 Allergy Injection 2 Or More Completed 09/06/2017 81072 Allergy Injection 2 Or More Completed 08/04/2017 24916 Allergy Injection 2 Or More Completed 07/19/2017 04657 Allergy Antigens Single Or Multiple Completed 07/05/2017 12277 Allergy Injection 2 Or More Completed 06/07/2017 28722 Allergy Injection 2 Or More Completed 05/12/2017 87188 Allergy Injection 2 Or More Completed 04/28/2017 33813 Allergy Injection 2 Or More Completed 04/14/2017 85541 Allergy Injection 2 Or More Completed 03/31/2017 93839 Allergy Injection 2 Or More Completed 03/17/2017 65559 Allergy Injection 2 Or More Completed 03/03/2017 81157 Allergy Injection 2 Or More Completed 02/17/2017 08087 Allergy Injection 2 Or More Completed 02/01/2017 51639 Allergy Injection 2 Or More Completed 01/26/2017 48766 Allergy Antigens Single Or Multiple Completed 01/20/2017 47796 Allergy Injection 2 Or More Completed 01/06/2017 92381 Allergy Injection 2 Or More Completed 12/23/2016 17723 Allergy Injection 2 Or More Completed 12/09/2016 01500 Allergy Injection 2 Or More Completed 11/25/2016 25175 Allergy Injection 2 Or More Completed 11/11/2016 48640 Allergy Injection 2 Or More Completed 10/28/2016 27739 Allergy Injection 2 Or More Completed 10/14/2016 97432 Bronchodilation Responsiveness Spirometry Pre/Post Completed Bronchodil Adm 10/14/2016 56898 Nitric Oxide Gas Determination Completed 10/14/2016 77451 Allergy Injection 2 Or More Completed 10/07/2016 18314 Allergy Injection 2 Or More Completed 08/26/2016 56558 Allergy Injection 2 Or More Completed 07/29/2016 46729 Allergy Injection 2 Or More Completed 06/17/2016 45769 Allergy Injection 2 Or More Completed 05/13/2016 24314 Allergy Injection 2 Or More Completed 04/29/2016 77293 Allergy Injection 2 Or More Completed 04/15/2016 89549 Allergy Antigens Single Or Multiple Completed 04/15/2016 63961 Allergy Injection 2 Or More Completed 04/01/2016 71656 Allergy Injection 2 Or More Completed 03/18/2016 57612 Allergy Injection 2 Or More Completed 03/09/2016 48170 Allergy Injection 2 Or More Completed 02/19/2016 32890 Allergy Injection 2 Or More Completed 02/05/2016 91046 Allergy Injection 2 Or More Completed 01/22/2016 04074 Allergy Injection 2 Or More Completed 01/08/2016 86633 Allergy Injection 2 Or More Completed 12/25/2015 90559 Allergy Injection 2 Or More Completed 11/13/2015 10512 Allergy Injection 2 Or More Completed 10/30/2015 68002 Allergy Injection 2 Or More Completed 10/16/2015 71038 Allergy Injection 2 Or More Completed 10/02/2015 85768 Allergy Injection 2 Or More Completed 09/18/2015 93220 Allergy Injection 2 Or More Completed 09/04/2015 82463 Allergy Injection 2 Or More Completed 08/28/2015 57572 Allergy Injection 2 Or More Completed 08/14/2015 97713 Allergy Injection 2 Or More Completed 07/31/2015 44170 Allergy Injection 2 Or More Completed 07/03/2015 97388 Allergy Injection 2 Or More Completed 06/17/2015 80942 Allergy Injection 2 Or More Completed 06/05/2015 57251 Allergy Injection 2 Or More Completed 05/22/2015 97467 Allergy Injection 2 Or More Completed Encounters Type Date Location Provider Dx Diagnosis Office Visit 09/14/2018 Roni Rutledge Z91.018 Allergy to other 3:30p Fenstermacher, foods RPA-C J30.1 Allergic rhinitis due to pollen J30.89 Other allergic rhinitis J45.30 Mild persistent asthma, uncomplicated Office Visit 09/05/2018 9:30a Roni Rutledge J45.30 Mild persistent Fenstermacher, RPA-C asthma, uncomplicated J30.1 Allergic rhinitis due to pollen J30.89 Other allergic rhinitis Z91.018 Allergy to other foods Office Visit 06/29/2018 3:30p TIFFANIE Mccloud J30.1 Allergic rhinitis due to pollen J30.89 Other allergic rhinitis J45.40 Moderate persistent asthma, uncomplicated Office Visit 05/25/2018 3:00p TIFFANIE Mccloud J30.1 Allergic rhinitis due to pollen J30.89 Other allergic rhinitis J45.41 Moderate persistent asthma with (acute) exacerbation Office Visit 11/24/2017 3:00p Roni John Allen, PA J30.89 Other allergic rhinitis J30.1 Allergic rhinitis due to pollen J45.909 Unspecified asthma, uncomplicated Office Visit 10/14/2016 3:30p Roni Rutledge J45.20 Mild intermittent АлександрermacheHANNY huang-Mary asthma, uncomplicated J30.1 Allergic rhinitis due to pollen J30.89 Other allergic rhinitis Plan of Treatment Future Appointment(s):10/03/2018 3:50 pm - Injection 1 at [facility]/12/2019 3 :30 pm - Rekha Farley RPA-Mary at [facility]/28/2019 - Rekha Farley RPA-CZ91.018 Allergy to other foodsComments: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 I have advised patient to begin an elimination diet of these foods and monitor for improvement in symptoms. Patient already avoids almonds, coconut, vanilla and oranges. Patient was skin test negative to these foods, but if she feels that they exacerbate her lupus pain, then she should continue avoidance.Follow up:As needed.J30.1 Allergic rhinitis due to pollenComments:Continue Nasonex and Zyrtec as prescribed. Continue allergy injections as scheduled.Follow up:6 months.J30.89 Other allergic cdixdaepV04.30 Mild persistent asthma, uncomplicatedComments:Continue Asmanex as prescribed. Continue ProAir as needed for breakthrough coughing, wheezing and/orshortness of breath.Follow up:6 months - w/PFT and NIOX prior to visit
--- OUTSIDE RECORDS SUMMARY | 2018-09-28 14:56 | XMS REPORT | Continuity of Care Document ---
:1985 External Reference #:[id number] Author Name Singh Ventura MD Address [address] [place] [address] Care Team Providers Name Role Phone Juan Trimble MD Care Team Information Senior Business Intelligence Analyst Unavailable Juan Trimble MD Primary Care Physician Unavailable Payers Date Identification Numbers Payment Provider Subscriber Effective: 2015 Policy Number: [id number] [facility] [employer] Dominique Jefferson PayID: [id number] [address] [address] [place] [address] Expires: 2015 Policy Number: [id number] [facility] Dominique Jefferson PayID: [id number] [address] [place] [address] Advance Directives Description No Information Available Problems Date Description Provider Status Onset: 10/14/2016 Mild intermittent asthma Rkeha Rutledge Fenstermacher, Active RPA-C Onset: 10/14/2016 Allergic [...] Active RPA-C Onset: 06/29/2018 Uncomplicated moderate persistent TIFFANEI Diaz Active asthma Family History Description No Information Available Social History Type Date Description Comments Sex Unknown Smoke-Free Home is smoke-free Tobacco Use Start: Unknown Patient has never smoked Smoking Status Reviewed: 09/05/18 Patient has never smoked Allergies, Adverse Reactions, [...] day Nasonex 10/14 Hx Suspension 50mcg/Act 17uni [place] 2 J30.1 ts sprays in Raad Ventura [...] Azithromycin 00 [facility]x Tablets [facility]mg [facility] Medications Administered in Office [...] Available Vital Signs Date Vital Result Comment 09/05/2018 9:50am BP Systolic 108 mmHg BP [...] 160.00 lb Heart Rate 82 /min Results Description No Information Available Procedures Date Code Description Status 09/05/2018 52173 Allergy Injection 2 Or More Completed 07/31/2018 38440 Allergy Antigens Single Or Multiple Completed 07/20/2018 19619 Allergy Injection 2 Or More Completed 06/29/2018 22408 Allergy Injection 2 Or More Completed 05/25/2018 72900 Allergy Injection 2 Or More Completed 05/25/2018 50881 Nitric Oxide Gas Determination Completed 05/25/2018 37686 Nitric Oxide Gas Determination Completed 05/25/2018 82649 Bronchodilation Responsiveness Spirometry Pre/Post Completed Bronchodil Adm 05/25/2018 90880 Bronchodilation Responsiveness Spirometry Pre/Post Completed Bronchodil Adm 05/04/2018 05615 Allergy Injection 2 Or More Completed 04/20/2018 76043 Allergy Injection 2 Or More Completed 04/06/2018 29880 Allergy Injection 2 Or More Completed 03/23/2018 40805 Allergy Injection 2 Or More Completed 03/09/2018 62889 Allergy Injection 2 Or More Completed 02/23/2018 97278 Allergy Injection 2 Or More Completed 02/09/2018 41228 Allergy Injection 2 Or More Completed 01/26/2018 98130 Allergy Antigens Single Or Multiple Completed 01/26/2018 19240 Allergy Injection 2 Or More Completed 01/12/2018 45495 Allergy Injection 2 Or More Completed 12/29/2017 66524 Allergy Injection 2 Or More Completed 12/15/2017 41782 Allergy Injection 2 Or More Completed 11/24/2017 75998 Allergy Injection 2 Or More Completed 11/24/2017 84771 Nitric Oxide Gas Determination Completed 11/24/2017 62611 Nitric Oxide Gas Determination Completed 11/24/2017 82264 Bronchodilation Responsiveness Spirometry Pre/Post Completed Bronchodil Adm 11/24/2017 49343 Bronchodilation Responsiveness Spirometry Pre/Post Completed Bronchodil Adm 11/10/2017 61074 Allergy Injection 2 Or More Completed 10/20/2017 53425 Allergy Injection 2 Or More Completed 10/06/2017 52402 Allergy Injection 2 Or More Completed 09/06/2017 88345 Allergy Injection 2 Or More Completed 08/04/2017 01937 Allergy Injection 2 Or More Completed 07/19/2017 33364 Allergy Antigens Single Or Multiple Completed 07/05/2017 60905 Allergy Injection 2 Or More Completed 06/07/2017 85969 Allergy Injection 2 Or More Completed 05/12/2017 03649 Allergy Injection 2 Or More Completed 04/28/2017 93409 Allergy Injection 2 Or More Completed 04/14/2017 85643 Allergy Injection 2 Or More Completed 03/31/2017 95808 Allergy Injection 2 Or More Completed 03/17/2017 54509 Allergy Injection 2 Or More Completed 03/03/2017 25969 Allergy Injection 2 Or More Completed 02/17/2017 01854 Allergy Injection 2 Or More Completed 02/01/2017 95258 Allergy Injection 2 Or More Completed 01/26/2017 08007 Allergy Antigens Single Or Multiple Completed 01/20/2017 39347 Allergy Injection 2 Or More Completed 01/06/2017 55808 Allergy Injection 2 Or More Completed 12/23/2016 99312 Allergy Injection 2 Or More Completed 12/09/2016 89937 Allergy Injection 2 Or More Completed 11/25/2016 47681 Allergy Injection 2 Or More Completed 11/11/2016 28388 Allergy Injection 2 Or More Completed 10/28/2016 99572 Allergy Injection 2 Or More Completed 10/14/2016 71232 Bronchodilation Responsiveness Spirometry Pre/Post Completed Bronchodil Adm 10/14/2016 27168 Nitric Oxide Gas Determination Completed 10/14/2016 26375 Allergy Injection 2 Or More Completed 10/07/2016 47444 Allergy Injection 2 Or More Completed 08/26/2016 95646 Allergy Injection 2 Or More Completed 07/29/2016 80137 Allergy Injection 2 Or More Completed 06/17/2016 97407 Allergy Injection 2 Or More Completed 05/13/2016 25470 Allergy Injection 2 Or More Completed 04/29/2016 37388 Allergy Injection 2 Or More Completed 04/15/2016 84196 Allergy Antigens Single Or Multiple Completed 04/15/2016 38884 Allergy Injection 2 Or More Completed 04/01/2016 21046 Allergy Injection 2 Or More Completed 03/18/2016 82218 Allergy Injection 2 Or More Completed 03/09/2016 71416 Allergy Injection 2 Or More Completed 02/19/2016 74872 Allergy Injection 2 Or More Completed 02/05/2016 83398 Allergy Injection 2 Or More Completed 01/22/2016 14172 Allergy Injection 2 Or More Completed 01/08/2016 36579 Allergy Injection 2 Or More Completed 12/25/2015 28599 Allergy Injection 2 Or More Completed 11/13/2015 14498 Allergy Injection 2 Or More Completed 10/30/2015 69395 Allergy Injection 2 Or More Completed 10/16/2015 52535 Allergy Injection 2 Or More Completed 10/02/2015 46072 Allergy Injection 2 Or More Completed 09/18/2015 67727 Allergy Injection 2 Or More Completed 09/04/2015 45288 Allergy Injection 2 Or More Completed 08/28/2015 04798 Allergy Injection 2 Or More Completed 08/14/2015 97766 Allergy Injection 2 Or More Completed 07/31/2015 84894 Allergy Injection 2 Or More Completed 07/03/2015 05119 Allergy Injection 2 Or More Completed 06/17/2015 12947 Allergy Injection 2 Or More Completed 06/05/2015 52603 Allergy Injection 2 Or More Completed 05/22/2015 96903 Allergy Injection 2 Or More Completed Encounters Type Date Location Provider Dx Diagnosis Office Visit 09/05/2018 Roni Cali45.30 Mild persistent asthma, 9:30a Fenstermacher, uncomplicated RPA-C J30.1 Allergic rhinitis due to pollen [...] with (acute) exacerbation Office Visit 11/24/2017 3:00p TIFFANIE Mccloud J30.89 Other allergic rhinitis J30.1 Allergic rhinitis due to pollen J45.909 Unspecified asthma, uncomplicated Office Visit 10/14/2016 3:30p Roni Rutledge J45.20 Mild intermittent Fenstermacher, RPA-C asthma, uncomplicated J30.1 Allergic rhinitis due to pollen J30.89 Other allergic rhinitis Plan of Treatment Future Appointment(s):09/14/2018 3:30 pm - JESUS Meeks at [facility]/19/2019 3:50 pm - Injection 1 at [facility]/12/2019 3:30 pm - Rekha Farley RPA-C at [facility]/19/2019 - Rekha Farley RPA-CJ45.30 Mild persistent asthma, uncomplicatedNew Medication:Asmanex HFA 100 mcg/Act - inhale two puffs by mouth twice a day. rinse mouth after use.Comments: Patient with persistent cough. Spirometry and NIOX in May were normal. I will give trial of Asmanex 100mcg. Patient is very sensitive to steroids. Continue Ventolin Q4 hours as needed for breakthrough coughing, wheezing and/or shortness of breath.J30.1 Allergic rhinitis due to pollenComments:Continue Flonase and Cetirizine as prescribed. I have advised her to start using a saline nasal gel and a cool mist humidifier in the bedroom. This should help reduce nasal dryness and make it easier to use Flonase consistently. Use Sudafed sparingly.J30.89 Other allergic aiucmlvwQ99.018 Allergy to other foodsComments:Patient would like repeat food allergy testing. She is concerned that certain foods may be exacerbating her Lupus. I will have her hold Cetirizine x48 hours and return for food allergy skin testing.Follow up:1 week - Food Skin Testing #70
--- OUTSIDE RECORDS SUMMARY | 2018-09-28 14:56 | XMS REPORT | Continuity of Care Document ---
:1985 External Reference #:[id number] Author Name Dianelys Lundberg Care Team Providers Name Role Phone Juan Trimble MD Care Team Information Fisher Lobster Unavailable Juan Trimble MD Primary Care Physician Unavailable Payers Date Identification Numbers Payment Provider Subscriber Effective: 2015 Policy Number: [id number] [facility] [employer] Dominique Jefferson PayID: [id number] [address] [address] [place] [address] Expires: 2015 Policy Number: [id number] [facility] Dominique Jefferson PayID: [id number] [address] [place] [address] Advance Directives Description No Information Available Problems Date Description Provider Status Onset: 10/14/2016 Mild intermittent asthma Rekha Farley, Active RPA-C Onset: 10/14/2016 Allergic rhinitis due to pollen Rekha Farley, Active RPA-C Onset: 10/14/2016 Allergic rhinitis Rekha Farley, Active RPA-C Onset: 11/24/2017 Asthma without status asthmaticus TIFFANIE Diaz Active Onset: 05/25/2018 Exacerbation of moderate TIFFANIE Diaz Active persistent asthma Onset: 06/29/2018 Uncomplicated moderate persistent TIFFANIE Diaz Active asthma Family History Description No Information Available Social History Type Date Description Comments Sex Unknown Smoke-Free Home is smoke-free Tobacco Use Start: Unknown Patient has never smoked Smoking Status Reviewed: 06/29/18 Patient has never smoked Allergies, Adverse Reactions, Alerts Date Description Reaction Status Severity Comments 04/03/2013 Doxycycline Calcium Active 10/14/2016 Prednisone Active Medications Medication Date Status Form Strength Qnty SIG Indications Ordering Provider Sudafed Nasal 06/29 Active Tablets 30mg 60tab one J30.1 Decongestant s tablet Raad Ventura MD Maximum Strength every 24 hours as needed Mometasone 01/20 Active Suspension 50mcg/Act [facility]gm [facility] Each Raad Ventura MD Nostril Once Daily Proair 11/19 Active Aerosol 108(90Bas 3unit inhale 2 Respiclick e) s puffs q4 Raad Ventura MD [...] day Nasonex 10/14 Hx Suspension 50mcg/Act 17uni [place] 2 J30.1 ts sprays in Raad Ventura MD - each 05/25 nostril by intranasa l route once daily. Fexofenadine HCL 10/14 Hx Tablets 180mg 30tab one J45.20 s tablet Raad Ventura MD - every 24 05/25 hours. Ventolin HFA 03/18 Hx Aerosol 108(90Bas 3unit Inhale 2 e) s puffs by Raad Ventura MD - mcg/Act inhalatio 09/05 n route /2018 every 4 hours as needed Fluticasone 03/07 Hx Suspension 50mcg/Act 1unit spray 2 Propionate s sprays Raad Ventura MD - (100 [...] 10/14 n route times per day Azithromycin Hx Tablets 250mg Muller, [facility] Medications Administered in Office Medication [...] Allergy 01/26/ Administered Injection Christopher Injection 2 2018 Raad Ventura MD Or More Allergy 01/12/ Administered Injection Christopher Injection 2 2018 Raad Ventura MD Or More Allergy 12/29/ Administered Injection Christopher Injection 2 2018 Raad Ventura MD Or More Allergy 12/15/ Administered Injection Christopher Injection 2 2018 Raad Ventura MD Or More Allergy 11/24/ Administered Injection Christopher Injection 2 2017 Raad Ventura MD Or More Allergy 11/10/ Administered Injection Christopher Injection 2 2017 Raad Ventura MD Or More Allergy // Administered Injection Christopher Injection 2 2017 Raad [...] 2016 Raad Ventura MD Or More Allergy 12/23/ Administered Injection Christopher Injection 2 2016 Raad [...] Available Procedures Date Code Description Status 09/05/2018 65737 Allergy Injection 2 Or More Completed 07/31/2018 12220 Allergy Antigens Single Or Multiple Completed 07/20/2018 95810 Allergy Injection 2 Or More Completed 06/29/2018 55133 Allergy Injection 2 Or More Completed 05/25/2018 39244 Allergy Injection 2 Or More Completed 05/25/2018 27284 Nitric Oxide Gas Determination Completed 05/25/2018 61178 Nitric Oxide Gas Determination Completed 05/25/2018 59499 Bronchodilation Responsiveness Spirometry Pre/Post Completed Bronchodil Adm 05/25/2018 30068 Bronchodilation Responsiveness Spirometry Pre/Post Completed Bronchodil Adm 05/04/2018 80957 Allergy Injection 2 Or More Completed 04/20/2018 22843 Allergy Injection 2 Or More Completed 04/06/2018 14581 Allergy Injection 2 Or More Completed 03/23/2018 01802 Allergy Injection 2 Or More Completed 03/09/2018 59776 Allergy Injection 2 Or More Completed 02/23/2018 66265 Allergy Injection 2 Or More Completed 02/09/2018 74451 Allergy Injection 2 Or More Completed 01/26/2018 61887 Allergy Antigens Single Or Multiple Completed 01/26/2018 59202 Allergy Injection 2 Or More Completed 01/12/2018 40598 Allergy Injection 2 Or More Completed 12/29/2017 35578 Allergy Injection 2 Or More Completed 12/15/2017 73011 Allergy Injection 2 Or More Completed 11/24/2017 25346 Allergy Injection 2 Or More Completed 11/24/2017 00196 Nitric Oxide Gas Determination Completed 11/24/2017 72075 Nitric Oxide Gas Determination Completed 11/24/2017 64886 Bronchodilation Responsiveness Spirometry Pre/Post Completed Bronchodil Adm 11/24/2017 42631 Bronchodilation Responsiveness Spirometry Pre/Post Completed Bronchodil Adm 11/10/2017 42931 Allergy Injection 2 Or More Completed 10/20/2017 15330 Allergy Injection 2 Or More Completed 10/06/2017 04814 Allergy Injection 2 Or More Completed 09/06/2017 14203 Allergy Injection 2 Or More Completed 08/04/2017 07465 Allergy Injection 2 Or More Completed 07/19/2017 20646 Allergy Antigens Single Or Multiple Completed 07/05/2017 83824 Allergy Injection 2 Or More Completed 06/07/2017 66203 Allergy Injection 2 Or More Completed 05/12/2017 61460 Allergy Injection 2 Or More Completed 04/28/2017 88831 Allergy Injection 2 Or More Completed 04/14/2017 88037 Allergy Injection 2 Or More Completed 03/31/2017 39153 Allergy Injection 2 Or More Completed 03/17/2017 59311 Allergy Injection 2 Or More Completed 03/03/2017 69181 Allergy Injection 2 Or More Completed 02/17/2017 75298 Allergy Injection 2 Or More Completed 02/01/2017 63903 Allergy Injection 2 Or More Completed 01/26/2017 45476 Allergy Antigens Single Or Multiple Completed 01/20/2017 10143 Allergy Injection 2 Or More Completed 01/06/2017 31672 Allergy Injection 2 Or More Completed 12/23/2016 19544 Allergy Injection 2 Or More Completed 12/09/2016 10610 Allergy Injection 2 Or More Completed 11/25/2016 94059 Allergy Injection 2 Or More Completed 11/11/2016 37765 Allergy Injection 2 Or More Completed 10/28/2016 13974 Allergy Injection 2 Or More Completed 10/14/2016 40167 Bronchodilation Responsiveness Spirometry Pre/Post Completed Bronchodil Adm 10/14/2016 63551 Nitric Oxide Gas Determination Completed 10/14/2016 19148 Allergy Injection 2 Or More Completed 10/07/2016 94663 Allergy Injection 2 Or More Completed 08/26/2016 91988 Allergy Injection 2 Or More Completed 07/29/2016 44139 Allergy Injection 2 Or More Completed 06/17/2016 94479 Allergy Injection 2 Or More Completed 05/13/2016 17789 Allergy Injection 2 Or More Completed 04/29/2016 91388 Allergy Injection 2 Or More Completed 04/15/2016 55936 Allergy Antigens Single Or Multiple Completed 04/15/2016 71916 Allergy Injection 2 Or More Completed 04/01/2016 63278 Allergy Injection 2 Or More Completed 03/18/2016 32864 Allergy Injection 2 Or More Completed 03/09/2016 35496 Allergy Injection 2 Or More Completed 02/19/2016 94408 Allergy Injection 2 Or More Completed 02/05/2016 39162 Allergy Injection 2 Or More Completed 01/22/2016 34661 Allergy Injection 2 Or More Completed 01/08/2016 26484 Allergy Injection 2 Or More Completed 12/25/2015 67194 Allergy Injection 2 Or More Completed 11/13/2015 35044 Allergy Injection 2 Or More Completed 10/30/2015 61814 Allergy Injection 2 Or More Completed 10/16/2015 60963 Allergy Injection 2 Or More Completed 10/02/2015 02228 Allergy Injection 2 Or More Completed 09/18/2015 96696 Allergy Injection 2 Or More Completed 09/04/2015 78016 Allergy Injection 2 Or More Completed 08/28/2015 75222 Allergy Injection 2 Or More Completed 08/14/2015 66814 Allergy Injection 2 Or More Completed 07/31/2015 69606 Allergy Injection 2 Or More Completed 07/03/2015 33021 Allergy Injection 2 Or More Completed 06/17/2015 85700 Allergy Injection 2 Or More Completed 06/05/2015 44631 Allergy Injection 2 Or More Completed 05/22/2015 26874 Allergy Injection 2 Or More Completed Encounters Type Date Location Provider Dx Diagnosis Office Visit 06/29/2018 3:30p TIFFANIE Mccloud J30.1 [...] Appointment(s):10/03/2018 3:50 pm - Injection 1 at [facility]17/12/2019 3 :30 pm - Rekha Farley RPA-C at [place]
--- OUTSIDE RECORDS SUMMARY | 2018-09-28 14:56 | XMS REPORT | Continuity of Care Document ---
:1985 External Reference #:[id number] Author Name Aidee Hedrick Care Team Providers Name Role Phone Juan Trimble MD Care Team Information Finish Patcher Unavailable Juan Trimble MD Primary Care Physician Unavailable Payers Date Identification Numbers Payment Provider Subscriber Effective: 2015 Policy Number: [id number] [facility] [employer] Dominique Jefferson PayID: [id number] [address] [address] [place] [address] Expires: 2015 Policy Number: [id number] [facility] Dominique Jefferson PayID: [id number] [address] [place] [address] Advance Directives Description No Information Available Problems [...] Onset: 09/05/2018 Allergy to other foods Rekha Farley, Active RPA-C Onset: 09/05/2018 Mild persistent asthma Rekha Farley, Active RPA-C Onset: 06/29/2018 Uncomplicated moderate persistent [...] 01/20 Active Suspension 50mcg/Act 51gm 2 Sprays [facility] Fur Each Raad Ventura MD Nostril Once [...] day Nasonex 10/14 Hx Suspension 50mcg/Act 17uni [place] 2 J30.1 ts sprays in Raad Ventura MD - each 05/25 nostril by intranasa l route once daily. Fexofenadine HCL 10/14 Hx Tablets 180mg 30tab one J45.20 s tablet Raad Ventura MD - every 24 11/08 hours. Ventolin HFA 03/18 Hx Aerosol 108(90Bas 3unit Inhale 2 e) s puffs by Raad Ventura MD - mcg/Act inhalatio 09/05 n route every 4 hours as needed Fluticasone 03/07 [...] day Azithromycin Hx Tablets [facility] Medications Administered in Office [...] Allergy 03/23/ Administered Injection Christopher Injection 2 2018 Raad Ventura MD Or More Allergy 03/09/ Administered Injection Christopher Injection 2 2018 Raad Ventura MD Or More Allergy 02/23/ [...] Administered Injection Christopher Injection 2 2016 Raad Ventuar MD Or More Allergy 05/12/ Administered Injection [...] Administered Injection Christopher Injection 2 2016 Raad Ventrua MD Or More Allergy 11/25/ Administered Injection [...] Available Procedures Date Code Description Status 09/05/2018 00045 Allergy Injection 2 Or More Completed 07/31/2018 48305 Allergy Antigens Single Or Multiple Completed 07/20/2018 03883 Allergy Injection 2 Or More Completed 06/29/2018 94893 Allergy Injection 2 Or More Completed 05/25/2018 46916 Allergy Injection 2 Or More Completed 05/25/2018 18749 Nitric Oxide Gas Determination Completed 05/25/2018 47345 Nitric Oxide Gas Determination Completed 05/25/2018 16155 Bronchodilation Responsiveness Spirometry Pre/Post Completed Bronchodil Adm 05/25/2018 32623 Bronchodilation Responsiveness Spirometry Pre/Post Completed Bronchodil Adm 05/04/2018 93992 Allergy Injection 2 Or More Completed 04/20/2018 06659 Allergy Injection 2 Or More Completed 04/06/2018 32715 Allergy Injection 2 Or More Completed 03/23/2018 22281 Allergy Injection 2 Or More Completed 03/09/2018 32256 Allergy Injection 2 Or More Completed 02/23/2018 87653 Allergy Injection 2 Or More Completed 02/09/2018 98370 Allergy Injection 2 Or More Completed 01/26/2018 84014 Allergy Antigens Single Or Multiple Completed 01/26/2018 22364 Allergy Injection 2 Or More Completed 01/12/2018 96520 Allergy Injection 2 Or More Completed 12/29/2017 82854 Allergy Injection 2 Or More Completed 12/15/2017 45289 Allergy Injection 2 Or More Completed 11/24/2017 99362 Allergy Injection 2 Or More Completed 11/24/2017 67665 Nitric Oxide Gas Determination Completed 11/24/2017 44200 Nitric Oxide Gas Determination Completed 11/24/2017 20978 Bronchodilation Responsiveness Spirometry Pre/Post Completed Bronchodil Adm 11/24/2017 82256 Bronchodilation Responsiveness Spirometry Pre/Post Completed Bronchodil Adm 11/10/2017 98458 Allergy Injection 2 Or More Completed 10/20/2017 84214 Allergy Injection 2 Or More Completed 10/06/2017 46076 Allergy Injection 2 Or More Completed 09/06/2017 11092 Allergy Injection 2 Or More Completed 08/04/2017 98377 Allergy Injection 2 Or More Completed 07/19/2017 43253 Allergy Antigens Single Or Multiple Completed 07/05/2017 59945 Allergy Injection 2 Or More Completed 06/07/2017 11868 Allergy Injection 2 Or More Completed 05/12/2017 06107 Allergy Injection 2 Or More Completed 04/28/2017 30783 Allergy Injection 2 Or More Completed 04/14/2017 92843 Allergy Injection 2 Or More Completed 03/31/2017 01576 Allergy Injection 2 Or More Completed 03/17/2017 20420 Allergy Injection 2 Or More Completed 03/03/2017 57415 Allergy Injection 2 Or More Completed 02/17/2017 24699 Allergy Injection 2 Or More Completed 02/01/2017 43721 Allergy Injection 2 Or More Completed 01/26/2017 70810 Allergy Antigens Single Or Multiple Completed 01/20/2017 94651 Allergy Injection 2 Or More Completed 01/06/2017 88553 Allergy Injection 2 Or More Completed 12/23/2016 76685 Allergy Injection 2 Or More Completed 12/09/2016 53947 Allergy Injection 2 Or More Completed 11/25/2016 94502 Allergy Injection 2 Or More Completed 11/11/2016 91274 Allergy Injection 2 Or More Completed 10/28/2016 55288 Allergy Injection 2 Or More Completed 10/14/2016 51251 Bronchodilation Responsiveness Spirometry Pre/Post Completed Bronchodil Adm 10/14/2016 58844 Nitric Oxide Gas Determination Completed 10/14/2016 54881 Allergy Injection 2 Or More Completed 10/07/2016 57783 Allergy Injection 2 Or More Completed 08/26/2016 77357 Allergy Injection 2 Or More Completed 07/29/2016 03339 Allergy Injection 2 Or More Completed 06/17/2016 33190 Allergy Injection 2 Or More Completed 05/13/2016 99731 Allergy Injection 2 Or More Completed 04/29/2016 12817 Allergy Injection 2 Or More Completed 04/15/2016 12032 Allergy Antigens Single Or Multiple Completed 04/15/2016 07897 Allergy Injection 2 Or More Completed 04/01/2016 52957 Allergy Injection 2 Or More Completed 03/18/2016 09083 Allergy Injection 2 Or More Completed 03/09/2016 59833 Allergy Injection 2 Or More Completed 02/19/2016 21182 Allergy Injection 2 Or More Completed 02/05/2016 66728 Allergy Injection 2 Or More Completed 01/22/2016 32876 Allergy Injection 2 Or More Completed 01/08/2016 26424 Allergy Injection 2 Or More Completed 12/25/2015 36632 Allergy Injection 2 Or More Completed 11/13/2015 98049 Allergy Injection 2 Or More Completed 10/30/2015 45734 Allergy Injection 2 Or More Completed 10/16/2015 62834 Allergy Injection 2 Or More Completed 10/02/2015 50098 Allergy Injection 2 Or More Completed 09/18/2015 25353 Allergy Injection 2 Or More Completed 09/04/2015 61797 Allergy Injection 2 Or More Completed 08/28/2015 10837 Allergy Injection 2 Or More Completed 08/14/2015 91122 Allergy Injection 2 Or More Completed 07/31/2015 93076 Allergy Injection 2 Or More Completed 07/03/2015 26840 Allergy Injection 2 Or More Completed 06/17/2015 89080 Allergy Injection 2 Or More Completed 06/05/2015 33336 Allergy Injection 2 Or More Completed 05/22/2015 45563 Allergy Injection 2 Or More Completed Encounters [...] Appointment(s):10/03/2018 3:50 pm - Injection 1 at [facility]04/12/2019 3 :30 pm - Rekha Willsonstermacher, RPA-C at [facility]
--- NOTE | 2018-09-28 15:55 | UC ---
Respiratory Complaint HPI - HPI Summary HPI Summary: 33 yo with history of lupus and ITP, with one week history of chest tightness and pain. Today has increased voice hoarseness and fever. No headache, heart palpitations, vomiting. Has felt nauseous. - History of Current Complaint Chief Complaint: UCRespiratory Stated Complaint: ST,TIRED,FEVER,CHEST PAIN WITH BREATHING Time Seen by Provider: 09/28/18 15:44 Hx Obtained From: Patient Hx Last Menstrual Period: 09/26/18 Onset/Duration: Gradual Onset, Lasting Days - 6 Timing: Constant Severity Initially: Moderate Severity Currently: Moderate Pain Intensity: 5 Character: Cough: Nonproductive Aggravating Factors: Deep Breaths Alleviating Factors: Nothing Associated Signs And Symptoms: Positive: Dyspnea, Nasal Congestion, Hoarseness - Risk Factors Pulmonary Embolism Risk Factors: Negative Cardiac Risk Factors: Negative Pseudomonas Risk Factors: Negative Tuberculosis Risk Factors: Negative - Allergies/Home Medications Allergies/Adverse Reactions: Allergies Allergy/AdvReac Type Severity Reaction Status Date / Time doxycycline Allergy Rash Verified 09/28/18 14:27 prednisone Allergy Vomiting Verified 09/28/18 14:27 Home Medications: Home Medications Levonorgestrel (Iud) [Mirena IUD] 0 mcg 09/28/18 [History] PMH/Surg Hx/FS Hx/Imm Hx - Additional Past Medical History Additional PMH: lupus ITP, most recent platelet count in the 70's - Surgical History Surgical History: Yes Surgery Procedure, Year, and Place: COLPOSCOPY(SCOPE OF UTERINE/CERVIX); CONE BIOPSY; LEEP; WISDOM TEETH REMOVAL. COLONOSCOPY - Family History Known Family History: Positive: Other - PGM had lupus and ITP Negative: Seizure Disorder - Social History Occupation: Employed Full-time Lives: Alone Alcohol Use: Occasionally Substance Use Type: None Smoking Status (MU): Never Smoked Tobacco - Immunization History Most Recent Tetanus Shot: 2008 Review of Systems All Other Systems Reviewed And Are Negative: Yes Constitutional: Positive: Fever - low grade today, Fatigue Skin: Positive: Negative Eyes: Positive: Negative ENT: Positive: Nasal Discharge Respiratory: Positive: Cough Cardiovascular: Positive: Chest Pain - feels tight Gastrointestinal: Positive: Negative Genitourinary: Positive: Other - no hx of renal involvement with dx of lupus; thinks renal function is normal. Motor: Positive: Negative Neurovascular: Positive: Negative Musculoskeletal: Positive: Negative Neurological: Positive: Negative Psychological: Positive: Negative Physical Exam Triage Information Reviewed: Yes Appearance: Pain Distress - mild, Obese - looks fatigued and mildly unwell Vital Signs: Initial Vital Signs Temp 99.3 F 09/28/18 14:29 Pulse 77 09/28/18 14:29 Resp 16 09/28/18 14:29 BP 103/61 09/28/18 14:29 Pulse Ox 97 09/28/18 14:29 Eyes: Positive: Conjunctiva Clear ENT: Positive: Pharyngeal erythema, TMs normal Neck: Positive: No Lymphadenopathy - tenderness costochondral junctions ribs 3 to 6 bilaterally. Respiratory Exam: Other - tenderness costochondral junctions. Respiratory: Positive: Lungs clear, Normal breath sounds, No respiratory distress Cardiovascular: Positive: RRR, No Murmur Abdomen Description: Positive: Nontender, No Organomegaly, Soft Musculoskeletal Exam: Normal Neurological: Positive: Alert Psychological Exam: Normal Skin Exam: Normal Diagnostics - Radiology normal Radiology Interpretation Completed By: Radiologist Summary of Radiographic Findings: No acute disease. Respiratory Course/Dx - Course Course Of Treatment: symptomatic treatment of viral illness and chest wall pain - Differential Dx/Diagnosis Differential Diagnosis/HQI/PQRI: Bronchitis, Influenza, Pneumothorax, Sinusitis Provider Diagnosis: Viral URI with cough, Chest wall pain Discharge - Sign-Out/Discharge Documenting (check all that apply): Patient Departure All imaging exams completed and their final reports reviewed: Yes - Discharge Plan Condition: Stable Disposition: HOME Patient Education Materials: Upper Respiratory Infection (ED), Chest Wall Pain (ED) Referrals: Juan Manuel MD [Primary Care Provider] - Additional Instructions: As discussed, flu screening is negative and your chest xray is normal. Continue symptomatic treatment of respiratory illness and chest wall pain, with follow up if you have persistent fever or the pain does not relieve over the next several days. - Billing Disposition and Condition Condition: STABLE Disposition: Home
[2018-09-28 16:17] LABS: Influenza A Molecular NEGATIVE (Negative); Influenza B Molecular NEGATIVE (Negative)
== END 2018-09-28 16:54 | disposition home or self-care (01) ==
LOC: UCCORT 14:17
DX: J06.9 Acute upper respiratory infection, unspecified (principal); R07.89 Other chest pain; R05 Cough; M32.9 Systemic lupus erythematosus, unspecified; Z88.1 Allergy status to other antibiotic agents; Z88.8 Allergy status to other drugs, medicaments and biological substances
CPT/HCPCS: 71046; 99211; G0463